=== PATIENT | male | born 1965 | race Caucasian/White ===

== ENCOUNTER 2020-03-22 19:43 | Inpatient (IN) | payer MEDICAID ==
[~2020-03-22] VITALS: Ht 177.8 cm; Wt 136.0 kg
[~2020-03-22 19:43] MED LIST: CYCL10TA2 PO; NAPR-683 PO
[2020-03-22] MEDS ORDERED: MORPHINE SULFATE 10 MG/ML VIAL. IV ONE ×3 (20:15→23:30)
[2020-03-22] MEDS ORDERED: IV RINGERS,LACTATED 1000ML 1,000 ML IV ONE (20:15)
--- NOTE | 2020-03-22 20:15 | ED.ADGEN ---
Past Medical History Past Medical History: Hypertension Past Surgical History: Other Additional Past Surgical Histo: right knee surgery, left knee surgery Smoking Status: Current Every Day Smoker Alcohol Use: None Drug Use: None General Adult EDM: Chief Complaint: ABDOMINAL PAIN HPI: HPI: Patient is a 54 year old male coming in for low abdominal pain and constipation for the past 4 days. Patient states he had had diarrhea for a couple of days but then stopped and he has not had a bowel movement since. Not passing gas either. Has had some nausea but no vomiting. Denies any urine complaints. Patient has a history of umbilical hernia and states that it is protruded more. Also over the past couple of weeks he started having sores that are nonweeping on the skin overlying the hernia. States he has no shortness of breath because he feels like his abdomen is more distended but denies any cough, fevers, headaches, chest pain. Review of Systems: Review of Systems: All other systems within normal limits except for as noted in the HPI Current Medications: Current Medications Medications (Trade) Dose Ordered Sig/David Start Time Stop Time Status Last Admin Dose Admin Info (CONTRAST GIVEN -- Rx MONITORING) 1 each PRN DAILY PRN 03/22/20 20:45 03/24/20 20:44 Iohexol (Omnipaque 300 Mg/ml) 75 ml 1X ONCE 03/22/20 20:45 03/22/20 20:46 DC 03/22/20 21:30 75 ML Morphine Sulfate (Morphine Sulfate) 4 mg PRN Q2HR PRN 03/22/20 23:30 03/23/20 23:29 UNV Ondansetron HCl (Zofran) 4 mg PRN Q8HRS PRN 03/22/20 23:30 03/23/20 23:29 UNV Piperacillin Sod/ Tazobactam Sod 4.5 gm/Sodium Chloride 100 ml @ 200 mls/hr 1X ONCE 03/22/20 22:45 03/22/20 23:14 DC 03/22/20 22:45 200 MLS/HR Ringer's Solution 1,000 ml @ 75 mls/hr 1X ONCE 03/22/20 20:15 03/23/20 09:34 03/22/20 20:21 75 MLS/HR Sodium Chloride 1,000 ml @ 75 mls/hr [id number] 03/22/20 23:30 03/23/20 23:29 UNV Allergies: Allergies: Allergies Coded Allergies Type Severity Reaction Last Updated Verified No Known Drug Allergies 03/27/13 No Physical Exam: PE: Constitutional: Well developed, well nourished, moderate distress, non-toxic appearance, obese. [] HENT: Normocephalic, atraumatic, bilateral external ears normal, nose normal. [] Eyes: PERRLA, conjunctiva normal, no discharge. [] Neck: No rigidity, supple, no stridor. [] Cardiovascular: Regular rate and rhythm, brisk cap refill [] Lungs & Thorax: Non labored symmetric respirations, no tachypnea or respiratory distress [] Abdomen: Distended, generalized tenderness, large, erythematous, firm umbilical hernia. Skin: Warm, dry, erythema over umbilical hernia with 3 scabbed wounds [] Extremities: No deformities, range of motion grossly intact, no lower extremity edema [] Neurologic: Alert and oriented X 3, no focal deficits noted. [] Psychologic: Affect normal, judgement normal, mood normal. [] Current Patient Data: Labs: Laboratory Tests Test 03/22/20 20:05 03/22/20 20:41 White Blood Count 13.7 x10^3/uL (4.0-11.0) H Red Blood Count 4.95 x10^6/uL (4.30-5.70) Hemoglobin 14.6 g/dL (13.0-17.5) Hematocrit 43.2 % (39.0-53.0) Mean Corpuscular Volume 87 fL (79-100) Mean Corpuscular Hemoglobin 30 pg (25-35) Mean Corpuscular Hemoglobin Concent 34 g/dL (31-37) Red Cell Distribution Width 14.7 % (11.5-14.5) H Platelet Count 383 x10^3/uL (140-400) Neutrophils (%) (Auto) 76 % (31-73) H Lymphocytes (%) (Auto) 16 % (24-48) L Monocytes (%) (Auto) 5 % (0-9) Eosinophils (%) (Auto) 1 % (0-3) Basophils (%) (Auto) 1 % (0-3) Neutrophils # (Auto) 10.4 x10^3/uL (1.8-7.7) H Lymphocytes # (Auto) 2.2 x10^3/uL (1.0-4.8) Monocytes # (Auto) 0.7 x10^3/uL (0.0-1.1) Eosinophils # (Auto) 0.2 x10^3/uL (0.0-0.7) Basophils # (Auto) 0.2 x10^3/uL (0.0-0.2) Lactic Acid Level 0.8 mmol/L (0.4-2.0) Sodium Level 137 mmol/L (136-145) Potassium Level 3.7 mmol/L (3.5-5.1) Chloride Level 100 mmol/L (98-107) Carbon Dioxide Level 26 mmol/L (21-32) Anion Gap 11 (6-14) Blood Urea Nitrogen 13 mg/dL (8-26) Creatinine 0.8 mg/dL (0.7-1.3) Estimated GFR (Cockcroft-Gault) 101.5 BUN/Creatinine Ratio 16 (6-20) Glucose Level 111 mg/dL (70-99) H Calcium Level 9.1 mg/dL (8.5-10.1) Total Bilirubin 0.3 mg/dL (0.2-1.0) Aspartate Amino Transferase (AST) 19 U/L (15-37) Alanine Aminotransferase (ALT) 29 U/L (16-63) Alkaline Phosphatase 85 U/L (46-116) Troponin I Quantitative < 0.017 ng/mL (0.000-0.055) Total Protein 7.9 g/dL (6.4-8.2) Albumin 3.1 g/dL (3.4-5.0) L Albumin/Globulin Ratio 0.6 (1.0-1.7) L Lipase 73 U/L (73-393) Laboratory Tests 03/22/20 20:05 Laboratory Tests 03/22/20 20:41 Vital Signs: Vital Signs Date Time Temp Pulse Resp B/P (MAP) Pulse Ox O2 Delivery O2 Flow Rate FiO2 03/22/20 23:00 98 167/77 (107) 94 Room Air 03/22/20 21:11 98.3 20 98.3 EKG: EKG: Sinus rhythm, heart rate 90 bpm, normal axis, incomplete right bundle branch block, normal intervals, T waves unremarkable, no ST elevation or depression [] Heart Score: Risk Factors: Risk Factors: DM, Current or recent (<one month) smoker, HTN, HLP, family history of CAD, obesity. Risk Scores: Score 0 - 3: 2.5% MACE over next 6 weeks - Discharge Home Score 4 - 6: 20.3% MACE over next 6 weeks - Admit for Clinical Observation Score 7 - 10: 72.7% MACE over next 6 weeks - Early Invasive Strategies Radiology/Procedures: Radiology/Procedures: CT SCAN OF THE ABDOMEN AND PELVIS WITH IV CONTRAST. History: Reason: hernia, bowel obstruction / Spl. Instructions: OMNI 300 INJ 75 MLS / History: Comparison:None. Procedure: Contiguous axial images of the abdomen and pelvis were performed after the administration of 75 cc of Omni 300 IV contrast. Oral contrast: No. Findings: There is a large umbilical hernia containing a segment of the transverse colon. There is some surrounding inflammation but no wall thickening. The colon distal to this is collapsed and proximal to the hernia is moderately distended. Liver: 8 mm hypoattenuating lesion anteriorly in the liver is too small to characterize but is likely a cyst. Spleen: Unremarkable Pancreas: Unremarkable Adrenal Glands: Unremarkable Kidneys: Unremarkable There is no mass or lymphadenopathy. There is no free air. There is no free fluid. The urinary bladder appears normal. Impression: 1. There is a large umbilical hernia containing a segment of the transverse colon. There is mild obstruction. 2. There is inflammation surrounding the herniated portion of the colon however there is no wall thickening to suggest incarceration.[] Course & Med Decision Making: Course & Med Decision Making Pertinent Labs and Imaging studies reviewed. (See chart for details) [] Dragon Disclaimer: Dragon Disclaimer: This electronic medical record was generated, in whole or in part, using a voice recognition dictation system. Departure Departure Impression: Primary Impression: Umbilical hernia with obstruction Disposition: ADMITTED INPT THIS HOSP Condition: STABLE Referrals: NO PCP (PCP) JAMES VILLASENOR MD Mar 22, 2020 20:15
[2020-03-22 20:29] LABS: BASO # 0.2 x10^3/uL (0.0-0.2); BASO % 1 % (0-3); EOS # 0.2 x10^3/uL (0.0-0.7); EOS % 1 % (0-3); HEMATOCRIT 43.2 % (39.0-53.0); HEMOGLOBIN 14.6 g/dL (13.0-17.5); LYMPH # 2.2 x10^3/uL (1.0-4.8); LYMPH % 16 % (24-48); MEAN CORPUSCULAR HEMOGLOBIN 30 pg (25-35); MEAN CORPUSCULAR HGB CONC 34 g/dL (31-37); MEAN CORPUSCULAR VOLUME 87 fL (79-100); MONO # 0.7 x10^3/uL (0.0-1.1); MONO % 5 % (0-9); NEUT # 10.4 x10^3/uL (1.8-7.7); NEUT % 76 % (31-73); PLATELET COUNT 383 x10^3/uL (140-400); RED BLOOD COUNT 4.95 x10^6/uL (4.30-5.70); RED CELL DISTRIBUTION WIDTH 14.7 % (11.5-14.5); WHITE BLOOD COUNT 13.7 x10^3/uL (4.0-11.0)
[2020-03-22] MEDS ORDERED: ONDANSETRON PF 4 MG/2 ML VIAL. IVP ONE (20:30)
[2020-03-22] MEDS ORDERED: CONTRAST GIVEN. MC PRN (20:45)
[2020-03-22] MEDS ORDERED: IOHEXOL 300 MG/ML 100ML VIAL. IV ONE (20:45)
[2020-03-22 21:05] LABS: ALBUMIN 3.1 g/dL (3.4-5.0); ALBUMIN/GLOBULIN RATIO 0.6 (1.0-1.7); CALCIUM 9.1 mg/dL (8.5-10.1); POTASSIUM 3.7 mmol/L (3.5-5.1); TOTAL BILIRUBIN 0.3 mg/dL (0.2-1.0); TOTAL PROTEIN 7.9 g/dL (6.4-8.2)
[2020-03-22 21:15] LABS: CREATININE 0.8 mg/dL (0.7-1.3); GFR 101.5
--- NOTE | 2020-03-22 22:02 | RAD ---
CT SCAN OF THE ABDOMEN AND PELVIS WITH IV CONTRAST. History: Reason: hernia, bowel obstruction / Spl. Instructions: OMNI 300 INJ 75 MLS / History: Comparison:None. Procedure: Contiguous axial images of the abdomen and pelvis were performed after the administration of 75 cc o f Omni 300 IV contrast. Oral contrast: No. Findings: There is a large umbilical hernia containing a segment of the transverse colon. There is some surroun ding inflammation but no wall thickening. The colon distal to this is collapsed and proximal to the h ernia is moderately distended. Liver: 8 mm hypoattenuating lesion anteriorly in the liver is too small to characterize but is likely a cyst. Spleen: Unremarkable Pancreas: Unremarkable Adrenal Glands: Unremarkable Kidneys: Unremarkable There is no mass or lymphadenopathy. There is no free air. There is no free fluid. The urinary bladder appears normal. Impression: 1. There is a large umbilical hernia containing a segment of the transverse colon. There is mild obst ruction. 2. There is inflammation surrounding the herniated portion of the colon however there is no wall thic kening to suggest incarceration. End impression PQRS Compliance Statement: One or more of the following individualized dose reduction techniques were utilized for this examinat ion: 1. Automated exposure control 2. Adjustment of the mA and/or kV according to patient size 3. Use of iterative reconstruction technique Electronically signed by: Diego Tony III, MD (03/22/2020 10:00 PM) [facility]
[2020-03-22] MEDS ORDERED: PIPERACILLIN/TAZOBACTAM 4.5 GM in IV NORMAL SALINE 100ML 100 ML IV ONE (22:45)
[2020-03-22] MEDS ORDERED: MORPHINE SULFATE 4 MG/ML VIAL. IV PRN (23:30)
[2020-03-22] MEDS ORDERED: ONDANSETRON PF 4 MG/2 ML VIAL. IV PRN (23:30)
[2020-03-22] MEDS: IV NORMAL SALINE 1000ML BAG 1,000 ML IV SCH (23:44)
[2020-03-22 23:46] LABS: BILIRUBIN,URINE NEGATIVE (NEG); COLOR,URINE YELLOW; NITRITE,URINE NEGATIVE (NEG); PROTEIN,URINE NEGATIVE (NEG-TRACE); UROBILINOGEN,URINE 0.2 mg/dL (0.2 mg/dL)
[2020-03-22 23:48] LABS: CLARITY,URINE CLEAR
[2020-03-22 23:50] LABS: BACTERIA,URINE 0 /HPF (0-FEW); WBC,URINE 0 /HPF (0-4)
[2020-03-23] VITALS (10 sets, daily range): BP systolic 101–165; BP diastolic 50–93
[2020-03-23] MEDS ORDERED: Blood pressure med (03:18)
--- NOTE | 2020-03-23 07:49 | PDOC2 ---
CONSULT Date of Consult Date of Consult DATE: 03/23/20 TIME: 07:46 Reason for Consult Reason for Consult: Incarcerated ventral hernia Referring Physician Referring Physician: Marc Identification/Chief Complaint Chief Complaint Abdominal pain constipation Source Source: Chart review, Patient History of Present Illness Reason for Visit: 54-year-old morbidly obese male with large umbilical hernia present for many years recently becoming more painful over the last 4 days has been very constipated denies any nausea or vomiting Past Medical History Cardiovascular: HTN Pulmonary: No pertinent hx GI: No pertinent hx Heme/Onc: No pertinent hx Hepatobiliary: No pertinent hx Psych: No pertinent hx Rheumatologic: No pertinent hx Infectious disease: No pertinent hx ENT: No pertinent hx Renal/: No pertinent hx Endocrine: Diabetes Dermatology: No pertinent hx Past Surgical History Past Surgical History: No pertinent history Family History Family History: No Significant Social History No ALCOHOL: social Drugs: None Lives: with Family Current Problem List Problem List Problems Medical Problems: (1) Umbilical hernia with obstruction Status: Acute Current Medications Current Medications Current Medications Morphine Sulfate (Morphine Sulfate) 5 mg 1X ONCE IV Last administered on 03/22/20at 20:26; Start 03/22/20 at 20:15; Stop 03/22/20 at 20:16; Status DC Ringer's Solution 1,000 ml @ 75 mls/hr 1X ONCE IV Last administered on 03/22/20at 20:21; Start 03/22/20 at 20:15; Stop 03/23/20 at 09:34 Ondansetron HCl (Zofran) 4 mg 1X ONCE IVP Last administered on 03/22/20at 20:26; Start 03/22/20 at 20:30; Stop 03/22/20 at 20:31; Status DC Iohexol (Omnipaque 300 Mg/ml) 75 ml 1X ONCE IV Last administered on 03/22/20at 21:30; Start 03/22/20 at 20:45; Stop 03/22/20 at 20:46; Status DC Info (CONTRAST GIVEN -- Rx MONITORING) 1 each PRN DAILY PRN MC SEE COMMENTS; Start 03/22/20 at 20:45; Stop 03/24/20 at 20:44 Morphine Sulfate (Morphine Sulfate) 5 mg 1X ONCE IV Last administered on 03/22/20at 21:20; Start 03/22/20 at 21:15; Stop 03/22/20 at 21:16; Status DC Piperacillin Sod/ Tazobactam Sod 4.5 gm/Sodium Chloride 100 ml @ 200 mls/hr 1X ONCE IV Last administered on 03/22/20at 22:45; Start 03/22/20 at 22:45; Stop 03/22/20 at 23:14; Status DC Morphine Sulfate (Morphine Sulfate) 5 mg 1X ONCE IV Last administered on 03/22/20at 23:44; Start 03/22/20 at 23:30; Stop 03/22/20 at 23:31; Status DC Ondansetron HCl (Zofran) 4 mg PRN Q8HRS PRN IV NAUSEA/VOMITING; Start 03/22/20 at 23:30; Stop 03/23/20 at 23:29 Morphine Sulfate (Morphine Sulfate) 4 mg PRN Q2HR PRN IV PAIN Last administered on 03/23/20at 03:10; Start 03/22/20 at 23:30; Stop 03/23/20 at 23:29 Sodium Chloride 1,000 ml @ 75 mls/hr [id number] IV Last administered on 03/22/20at 23:44; Start 03/22/20 at 23:30; Stop 03/23/20 at 23:29 Active Scripts Active Reported [Blood pressure med] Allergies Allergies: Coded Allergies: No Known Drug Allergies (Unverified , 03/27/13) ROS Gastrointestinal: Yes Abdominal Pain Physical Exam General: Alert, Oriented X3, Cooperative, mild distress HEENT: Atraumatic, EOMI Lungs: Clear to auscultation, Normal air movement Heart: Regular rate, No murmurs Abdomen: Normal bowel sounds, Soft, Other (Abdomen tender around the umbilicus skin changes with some wounds large umbilical hernia) Extremities: Other (Mild pedal edema) Skin: Other (Abdominal skin wounds) Neuro: Normal speech Psych/Mental Status: Mental status NL Vitals VITALS Vital Signs Date Time Temp Pulse Resp B/P (MAP) Pulse Ox O2 Delivery O2 Flow Rate FiO2 03/23/20 03:10 18 92 Nasal Cannula 2.0 03/23/20 03:00 97.9 97 146/74 (98) 97.9 Labs Labs Laboratory Tests Test 03/22/20 20:05 03/22/20 20:41 03/22/20 23:40 03/23/20 00:09 White Blood Count 13.7 x10^3/uL (4.0-11.0) Red Blood Count 4.95 x10^6/uL (4.30-5.70) Hemoglobin 14.6 g/dL (13.0-17.5) Hematocrit 43.2 % (39.0-53.0) Mean Corpuscular Volume 87 fL (79-100) Mean Corpuscular Hemoglobin 30 pg (25-35) Mean Corpuscular Hemoglobin Concent 34 g/dL (31-37) Red Cell Distribution Width 14.7 % (11.5-14.5) Platelet Count 383 x10^3/uL (140-400) Neutrophils (%) (Auto) 76 % (31-73) Lymphocytes (%) (Auto) 16 % (24-48) Monocytes (%) (Auto) 5 % (0-9) Eosinophils (%) (Auto) 1 % (0-3) Basophils (%) (Auto) 1 % (0-3) Neutrophils # (Auto) 10.4 x10^3/uL (1.8-7.7) Lymphocytes # (Auto) 2.2 x10^3/uL (1.0-4.8) Monocytes # (Auto) 0.7 x10^3/uL (0.0-1.1) Eosinophils # (Auto) 0.2 x10^3/uL (0.0-0.7) Basophils # (Auto) 0.2 x10^3/uL (0.0-0.2) Lactic Acid Level 0.8 mmol/L (0.4-2.0) Sodium Level 137 mmol/L (136-145) Potassium Level 3.7 mmol/L (3.5-5.1) Chloride Level 100 mmol/L (98-107) Carbon Dioxide Level 26 mmol/L (21-32) Anion Gap 11 (6-14) Blood Urea Nitrogen 13 mg/dL (8-26) Creatinine 0.8 mg/dL (0.7-1.3) Estimated GFR (Cockcroft-Gault) 101.5 BUN/Creatinine Ratio 16 (6-20) Glucose Level 111 mg/dL (70-99) Calcium Level 9.1 mg/dL (8.5-10.1) Total Bilirubin 0.3 mg/dL (0.2-1.0) Aspartate Amino Transf (AST/SGOT) 19 U/L (15-37) Alanine Aminotransferase (ALT/SGPT) 29 U/L (16-63) Alkaline Phosphatase 85 U/L (46-116) Troponin I Quantitative < 0.017 ng/mL (0.000-0.055) Total Protein 7.9 g/dL (6.4-8.2) Albumin 3.1 g/dL (3.4-5.0) Albumin/Globulin Ratio 0.6 (1.0-1.7) Lipase 73 U/L (73-393) Urine Collection Type Unknown Urine Color Yellow Urine Clarity Clear Urine pH 7.0 (<5.0-8.0) Urine Specific [place] >=1.030 (1.000-1.030) Urine Protein Negative mg/dL (NEG-TRACE) Urine Glucose (UA) Negative mg/dL (NEG) Urine Ketones (Stick) Negative mg/dL (NEG) Urine Blood Negative (NEG) Urine Nitrite Negative (NEG) Urine Bilirubin Negative (NEG) Urine Urobilinogen Dipstick 0.2 mg/dL (0.2 mg/dL) Urine Leukocyte Esterase Negative (NEG) Urine RBC 1-2 /HPF (0-2) Urine WBC 0 /HPF (0-4) Urine Bacteria 0 /HPF (0-FEW) Urine Mucus Slight /LPF SARS-CoV-2 Antigen (Rapid) Negative (NEGATIVE) Laboratory Tests Test 03/22/20 20:05 03/22/20 20:41 03/22/20 23:40 03/23/20 00:09 White Blood Count 13.7 x10^3/uL (4.0-11.0) Red Blood Count 4.95 x10^6/uL (4.30-5.70) Hemoglobin 14.6 g/dL (13.0-17.5) Hematocrit 43.2 % (39.0-53.0) Mean Corpuscular Volume 87 fL (79-100) Mean Corpuscular Hemoglobin 30 pg (25-35) Mean Corpuscular Hemoglobin Concent 34 g/dL (31-37) Red Cell Distribution Width 14.7 % (11.5-14.5) Platelet Count 383 x10^3/uL (140-400) Neutrophils (%) (Auto) 76 % (31-73) Lymphocytes (%) (Auto) 16 % (24-48) Monocytes (%) (Auto) 5 % (0-9) Eosinophils (%) (Auto) 1 % (0-3) Basophils (%) (Auto) 1 % (0-3) Neutrophils # (Auto) 10.4 x10^3/uL (1.8-7.7) Lymphocytes # (Auto) 2.2 x10^3/uL (1.0-4.8) Monocytes # (Auto) 0.7 x10^3/uL (0.0-1.1) Eosinophils # (Auto) 0.2 x10^3/uL (0.0-0.7) Basophils # (Auto) 0.2 x10^3/uL (0.0-0.2) Lactic Acid Level 0.8 mmol/L (0.4-2.0) Sodium Level 137 mmol/L (136-145) Potassium Level 3.7 mmol/L (3.5-5.1) Chloride Level 100 mmol/L (98-107) Carbon Dioxide Level 26 mmol/L (21-32) Anion Gap 11 (6-14) Blood Urea Nitrogen 13 mg/dL (8-26) Creatinine 0.8 mg/dL (0.7-1.3) Estimated GFR (Cockcroft-Gault) 101.5 BUN/Creatinine Ratio 16 (6-20) Glucose Level 111 mg/dL (70-99) Calcium Level 9.1 mg/dL (8.5-10.1) Total Bilirubin 0.3 mg/dL (0.2-1.0) Aspartate Amino Transf (AST/SGOT) 19 U/L (15-37) Alanine Aminotransferase (ALT/SGPT) 29 U/L (16-63) Alkaline Phosphatase 85 U/L (46-116) Troponin I Quantitative < 0.017 ng/mL (0.000-0.055) Total Protein 7.9 g/dL (6.4-8.2) Albumin 3.1 g/dL (3.4-5.0) Albumin/Globulin Ratio 0.6 (1.0-1.7) Lipase 73 U/L (73-393) Urine Collection Type Unknown Urine Color Yellow Urine Clarity Clear Urine pH 7.0 (<5.0-8.0) Urine Specific [place] >=1.030 (1.000-1.030) Urine Protein Negative mg/dL (NEG-TRACE) Urine Glucose (UA) Negative mg/dL (NEG) Urine Ketones (Stick) Negative mg/dL (NEG) Urine Blood Negative (NEG) Urine Nitrite Negative (NEG) Urine Bilirubin Negative (NEG) Urine Urobilinogen Dipstick 0.2 mg/dL (0.2 mg/dL) Urine Leukocyte Esterase Negative (NEG) Urine RBC 1-2 /HPF (0-2) Urine WBC 0 /HPF (0-4) Urine Bacteria 0 /HPF (0-FEW) Urine Mucus Slight /LPF SARS-CoV-2 Antigen (Rapid) Negative (NEGATIVE) Images Images CT scan showing large ventral hernia at the umbilicus with incarcerated transverse colon no evidence of obstruction Assessment/Plan Assessment/Plan Incarcerated ventral umbilical hernia plan repair ERIC LORENZ MD Mar 23, 2020 07:49
[2020-03-23 07:51] LABS: BASO # 0.1 x10^3/uL (0.0-0.2); BASO % 0 % (0-3); EOS # 0.1 x10^3/uL (0.0-0.7); EOS % 1 % (0-3); HEMATOCRIT 42.8 % (39.0-53.0); HEMOGLOBIN 13.9 g/dL (13.0-17.5); LYMPH # 1.7 x10^3/uL (1.0-4.8); LYMPH % 14 % (24-48); MEAN CORPUSCULAR HEMOGLOBIN 29 pg (25-35); MEAN CORPUSCULAR HGB CONC 32 g/dL (31-37); MEAN CORPUSCULAR VOLUME 88 fL (79-100); MONO # 0.7 x10^3/uL (0.0-1.1); MONO % 5 % (0-9); NEUT # 9.8 x10^3/uL (1.8-7.7); NEUT % 80 % (31-73); PLATELET COUNT 351 x10^3/uL (140-400); RED BLOOD COUNT 4.87 x10^6/uL (4.30-5.70); RED CELL DISTRIBUTION WIDTH 14.3 % (11.5-14.5); WHITE BLOOD COUNT 12.3 x10^3/uL (4.0-11.0)
[2020-03-23] MEDS ORDERED: ceFAZolin SODIUM 3 GM in IV DEXTROSE 5% 100ML 100 ML IV PRN (08:00)
[2020-03-23] MEDS ORDERED: ceFAZolin SODIUM IV Push 1 GM VIAL. IVP PRN (08:00)
[2020-03-23 08:03] LABS: CALCIUM 8.3 mg/dL (8.5-10.1); CREATININE 0.6 mg/dL (0.7-1.3); GFR 141.5; POTASSIUM 3.9 mmol/L (3.5-5.1)
[2020-03-23] MEDS ORDERED: ROCURONIUM 50 MG/5 ML VIAL. ONE (09:09)
[2020-03-23] MEDS ORDERED: fentaNYL PF VIAL 100 MCG/2 ML VIAL ONE (09:10)
[2020-03-23] MEDS ORDERED: LIDOCAINE 2% PF 5 ML VIAL. ONE (09:10)
[2020-03-23] MEDS ORDERED: PROPOFOL 10 MG/ML (20ML) VIAL. IV ONE (09:10)
[2020-03-23] MEDS ORDERED: DEXAMETHASONE SOD PHOS 4 MG/ML VIAL ONE (09:10)
[2020-03-23] MEDS ORDERED: ONDANSETRON PF 4 MG/2 ML VIAL. ONE (09:10)
[2020-03-23] MEDS ORDERED: BUPIVACAINE-EPI 0.25%-1:200000 MPF 30 ML VIAL. INJ ONE (09:15)
[2020-03-23] MEDS ORDERED: SUCCINYLCHOLINE 200 MG/10 ML VIAL. ONE (09:37)
[2020-03-23] MEDS ORDERED: PHENYLEPHRINE in 0.9% NACL PF 1 MG/10 ML SYRINGE. IV ONE (09:48)
[2020-03-23] MEDS ORDERED: ROCURONIUM 100 MG/10 ML VIAL. ONE (10:31)
--- NOTE | 2020-03-23 10:46 | PDOC4 ---
Operative Note Operative Note Date: March 23, 2020 at 1043 Preoperative diagnosis: Incarcerated umbilical hernia Postoperative diagnosis: Same Procedure: Exploratory laparotomy with repair of large umbilical hernia Surgeon: Johnnie Specimen: Hernia sac and contents Dictation: Patient is a 54-year-old gentleman admitted to the hospital with abdominal pain and a large umbilical hernia containing a incarcerated loop of transverse colon. Procedure of exploratory laparotomy with hernia repair was explained to the patient detail risk benefits were also discussed including bleeding infection injury to intra-abdominal contents possible necessitating further operations. Patient seemed understand gave both verbal and written consent to have the procedure performed. Patient was taken to the operating room placed in the supine position general anesthesia was initiated once patient was sleeping in bed his abdomen was prepped and draped usual sterile fashion using ChloraPrep. An elliptical incision around the hernia defect was made through the skin using of 10 blade scalpel is carried down through the subcutaneous tissue using electrocautery right hemostasis. Electrocautery was used to dissect out the hernia sac and its contents down to the fascia the hernia sac was then carefully opened taking great care not to injure any hernia contents was further opened to allow for reduction of the hernia contents. The sac was completely excised and sent for pathology the fascia opening was cleared of any adherent tissues and all contents were returned back to the abdomen. The fascia was then closed with a running #1 looped PDS. Deep subcutaneous layer was closed with a running 0 Vicryl, more subcutaneous layers closed with running 3-0 Vicryl and the skin was reapproximated for subcuticular Monocryl Mastisol Steri-Strips and island dressings were applied. Patient was awakened and extubated in the operating room taken to recovery in stable condition all sponge instrument needle counts listed as correct estimated blood loss 30 mL. ERIC LORENZ MD Mar 23, 2020 10:46
[2020-03-23] MEDS ORDERED: GLYCOPYRROLATE 1 MG/5 ML VIAL. ONE (10:58)
[2020-03-23] MEDS ORDERED: NEOSTIGMINE METHYLSULFATE 5 MG/5 ML SYRINGE. ONE (10:58)
[2020-03-23] MEDS ORDERED: SEVOFLURANE 61 TO 120 MINUTES. IH ONE (10:59)
[2020-03-23] MEDS ORDERED: oxyCODONE/APAP 5/325 1 TAB TABLET PO PRN (11:00)
--- NOTE | 2020-03-23 11:05 | NUR ---
SW following for discharge planning. Spoke with RN and reviewed chart. Pt currently NPO and on 2l 02 and IV pain medication. Pt in surgery today. Pt self-pay and [facility] is following. No anticipated SW needs on discharge. SW following. Addendum: 03/26/20 at 0948 by LEDY DODSON SW pt transferred to 4N. No further needs from this SW.
[2020-03-23] MEDS ORDERED: MORPHINE SULFATE 2 MG/ML VIAL. ONE (11:19)
[2020-03-23] MEDS: MORPHINE SULFATE 2 MG/ML VIAL. IV PRN ×2 (11:21→11:35)
[2020-03-23] MEDS ORDERED: HYDROmorphone 2 MG/ML VIAL ONE (11:41)
[2020-03-23] MEDS: HYDROmorphone 2 MG/ML VIAL IV PRN ×3 (11:45→12:12)
[2020-03-23] MEDS: IV NORMAL SALINE 1000ML BAG 1,000 ML IV SCH (14:50)
[2020-03-23] MEDS: POLYETHYLENE GLYCOL 3350 17 GM PACKET. PO SCH (14:50)
[2020-03-23] MEDS: oxyCODONE/APAP 5/325 1 TAB TABLET PO PRN (18:25)
--- NOTE | 2020-03-23 18:36 | PDOC1 ---
History and Physical Date of Admission Date of Admission 03/23/2020 Identification/Chief Complaint Chief Complaint My stomach hurts Source Source: Chart review, Patient History of Present Illness History of Present Illness Patient is a 55-year-old gentleman with past medical history of essential hypertension who has been in his usual state of health until approximately 4 days prior to his admission when he started complaining of constipation and subsequently lower abdominal pain. The patient apparently had bouts of diarrhea and decided to self medicate and seems to have gone the other extreme. He unfortunately stopped passing gas and due to most likely his constipation he also had some nausea he denies any emesis denies any dietary transgressions no sick contacts no travels outside the area. The patient does have a history of umbilical hernia and due to the discomfort and he was scanned and found to have a large umbilical hernia containing a segment of the transverse colon that apparently was reported to be mildly obstructed and there was some inflammation surrounding this portion of colon but no wall thickening to suggest incarceration. Due to the abnormal findings of the CAT scan the patient was admitted for surgical evaluation. The patient is being seen postop after he underwent the following procedure: Operative Note Operative Note Date: March 23, 2020 at 1043 Preoperative diagnosis: Incarcerated umbilical hernia Postoperative diagnosis: Same Procedure: Exploratory laparotomy with repair of large umbilical hernia Surgeon: Johnnie Specimen: Hernia sac and contents Dictation: Patient is a 54-year-old gentleman admitted to the hospital with abdominal pain and a large umbilical hernia containing a incarcerated loop of transverse colon. Procedure of exploratory laparotomy with hernia repair was explained to the patient detail risk benefits were also discussed including bleeding infection injury to intra-abdominal contents possible necessitating further operations. Patient seemed understand gave both verbal and written consent to have the procedure performed. Patient was taken to the operating room placed in the supine position general anesthesia was initiated once patient was sleeping in bed his abdomen was prepped and draped usual sterile fashion using ChloraPrep. An elliptical incision around the hernia defect was made through the skin using of 10 blade scalpel is carried down through the subcutaneous tissue using electrocautery right hemostasis. Electrocautery was used to dissect out the hernia sac and its contents down to the fascia the hernia sac was then carefully opened taking great care not to injure any hernia contents was further opened to allow for reduction of the hernia contents. The sac was completely excised and sent for pathology the fascia opening was cleared of any adherent tissues and all contents were returned back to the abdomen. The fascia was then closed with a running #1 looped PDS. Deep subcutaneous layer was closed with a running 0 Vicryl, more subcutaneous layers closed with running 3-0 Vicryl and the skin was reapproximated for subcuticular Monocryl Mastisol Steri-Strips and island dressings were applied. Patient was awakened and extubated in the operating room taken to recovery in stable condition all sponge instrument needle counts listed as correct estimated blood loss 30 mL. Past Medical History Cardiovascular: HTN Pulmonary: No pertinent hx GI: No pertinent hx Heme/Onc: No pertinent hx Hepatobiliary: No pertinent hx Psych: No pertinent hx Rheumatologic: No pertinent hx Infectious disease: No pertinent hx ENT: No pertinent hx Renal/: No pertinent hx Endocrine: Diabetes Dermatology: No pertinent hx Past Surgical History Past Surgical History: No pertinent history Family History Family History: No Significant Social History Smoke: No ALCOHOL: social Drugs: None Current Problem List Problem List Problems Medical Problems: (1) Umbilical hernia with obstruction Status: Acute Current Medications Current Medications Current Medications Medications (Trade) Dose Ordered Sig/David Start Time Stop Time Status Last Admin Dose Admin Bupivacaine HCl/ Epinephrine Bitart (Sensorcaine-Epi 0.25%-1:828736 Mpf) 30 ml 1X ONCE 03/23/20 09:15 03/23/20 09:16 DC Cefazolin Sodium (Ancef) 3 gm 1X PREOP PRN 03/23/20 08:00 UNV Cefazolin Sodium 3 gm/Dextrose 100 ml @ 200 mls/hr 1X PREOP PRN 03/23/20 08:00 03/24/20 07:59 Cancel Cefazolin Sodium 3 gm/Sodium Chloride 100 ml @ 200 mls/hr 1X PREOP PRN 03/23/20 08:00 03/24/20 07:59 03/23/20 09:46 200 MLS/HR Dexamethasone Sodium Phosphate (Decadron) 4 mg STK-MED ONCE 03/23/20 09:10 03/23/20 09:11 DC Fentanyl Citrate (Fentanyl 2ml Vial) 100 mcg STK-MED ONCE 03/23/20 09:10 03/23/20 09:10 DC Glycopyrrolate (Robinul) 1 mg STK-MED ONCE 03/23/20 10:58 03/23/20 10:59 DC Hydromorphone HCl (Dilaudid) 2 mg STK-MED ONCE 03/23/20 11:41 03/23/20 11:41 DC Info (CONTRAST GIVEN -- Rx MONITORING) 1 each PRN DAILY PRN 03/22/20 20:45 03/24/20 20:44 Iohexol (Omnipaque 300 Mg/ml) 75 ml 1X ONCE 03/22/20 20:45 03/22/20 20:46 DC 03/22/20 21:30 75 ML Lidocaine HCl (Lidocaine Pf 2% Vial) 5 ml STK-MED ONCE 03/23/20 09:10 03/23/20 09:10 DC Lidocaine HCl (Xylocaine-Mpf 1% 2ml Vial) 2 ml PRN 1X PRN 03/24/20 07:00 03/25/20 06:59 Morphine Sulfate (Morphine Sulfate) 2 mg STK-MED ONCE 03/23/20 11:19 03/23/20 11:20 DC Neostigmine Mchenry (Neostigmine Methylsulfate) 5 mg STK-MED ONCE 03/23/20 10:58 03/23/20 10:58 DC Ondansetron HCl (Zofran) 4 mg STK-MED ONCE 03/23/20 09:10 03/23/20 09:11 DC Oxycodone/ Acetaminophen (Percocet 5/325) 2 tab PRN Q4HRS PRN 03/23/20 11:00 03/23/20 18:25 2 TAB Phenylephrine HCl (PHENYLEPHRINE in 0.9% NACL PF) 1 mg STK-MED ONCE 03/23/20 09:48 03/23/20 09:48 DC Piperacillin Sod/ Tazobactam Sod 4.5 gm/Sodium Chloride 100 ml @ 200 mls/hr 1X ONCE 03/22/20 22:45 03/22/20 23:14 DC 03/22/20 22:45 200 MLS/HR Polyethylene Glycol (miraLAX PACKET) 17 gm DAILY 03/23/20 11:00 03/23/20 14:50 17 GM Prochlorperazine Edisylate (Compazine) 5 mg PACU PRN PRN 03/24/20 07:00 03/25/20 06:59 Propofol (Diprivan) 200 mg STK-MED ONCE 03/23/20 09:10 03/23/20 09:10 DC Ringer's Solution 1,000 ml @ 30 mls/hr Q24H 03/24/20 07:00 03/24/20 18:59 Rocuronium Mchenry (Zemuron) 100 mg STK-MED ONCE 03/23/20 10:31 03/23/20 10:31 DC Sevoflurane (Ultane) 60 ml STK-MED ONCE 03/23/20 10:59 03/23/20 10:59 DC Sodium Chloride 1,000 ml @ 75 mls/hr [id number] 03/22/20 23:30 03/23/20 23:29 03/23/20 14:50 75 MLS/HR Succinylcholine Chloride (Anectine) 200 mg STK-MED ONCE 03/23/20 09:37 03/23/20 09:37 DC Allergies Allergies Allergies Coded Allergies Type Severity Reaction Last Updated Verified No Known Drug Allergies 03/27/13 No ROS Review of System CONSTITUTIONAL: No fever or chills EYES: No recent changes SKIN: No rash or itching CARDIOVASCULAR: No chest pain, syncope, palpitations, or edema RESPIRATORY: No SOB or cough GASTROINTESTINAL: No nausea, vomiting or abdominal pain NEUROLOGICAL: No headaches or weakness ENDOCRINE: No cold or heat intolerance GENITOURINARY: No urgency or frequency of urination MUSCULOSKELETAL: No back pain or joint pain LYMPHATICS: No enlarged lymph nodes PSYCHIATRIC: No anxiety or depression Physical Exam Physical Exam GEN.: No apparent distress. Alert and oriented. HEENT: Head is normocephalic, atraumatic NECK: Supple. LUNGS: Clear to auscultation. HEART: RRR, S1, S2 present. Peripheral pulses intact ABDOMEN: Soft, nontender. Positive bowel sounds. EXTREMITIES: Without any cyanosis. NEUROLOGIC: Normal speech, normal tone PSYCHIATRIC: Normal affect, normal mood. SKIN: No ulcerations Vitals Vitals Vital Signs Date Time Temp Pulse Resp B/P (MAP) Pulse Ox O2 Delivery O2 Flow Rate FiO2 03/23/20 14:46 86 138/70 (92) 03/23/20 14:30 84 03/23/20 14:01 18 Nasal Cannula 2.0 03/23/20 11:08 98.1 98.1 Labs Labs Laboratory Tests Test 03/22/20 20:05 03/22/20 20:41 03/22/20 23:40 03/23/20 00:09 White Blood Count 13.7 x10^3/uL (4.0-11.0) Red Blood Count 4.95 x10^6/uL (4.30-5.70) Hemoglobin 14.6 g/dL (13.0-17.5) Hematocrit 43.2 % (39.0-53.0) Mean Corpuscular Volume 87 fL (79-100) Mean Corpuscular Hemoglobin 30 pg (25-35) Mean Corpuscular Hemoglobin Concent 34 g/dL (31-37) Red Cell Distribution Width 14.7 % (11.5-14.5) Platelet Count 383 x10^3/uL (140-400) Neutrophils (%) (Auto) 76 % (31-73) Lymphocytes (%) (Auto) 16 % (24-48) Monocytes (%) (Auto) 5 % (0-9) Eosinophils (%) (Auto) 1 % (0-3) Basophils (%) (Auto) 1 % (0-3) Neutrophils # (Auto) 10.4 x10^3/uL (1.8-7.7) Lymphocytes # (Auto) 2.2 x10^3/uL (1.0-4.8) Monocytes # (Auto) 0.7 x10^3/uL (0.0-1.1) Eosinophils # (Auto) 0.2 x10^3/uL (0.0-0.7) Basophils # (Auto) 0.2 x10^3/uL (0.0-0.2) Lactic Acid Level 0.8 mmol/L (0.4-2.0) Sodium Level 137 mmol/L (136-145) Potassium Level 3.7 mmol/L (3.5-5.1) Chloride Level 100 mmol/L (98-107) Carbon Dioxide Level 26 mmol/L (21-32) Anion Gap 11 (6-14) Blood Urea Nitrogen 13 mg/dL (8-26) Creatinine 0.8 mg/dL (0.7-1.3) Estimated GFR (Cockcroft-Gault) 101.5 BUN/Creatinine Ratio 16 (6-20) Glucose Level 111 mg/dL (70-99) Calcium Level 9.1 mg/dL (8.5-10.1) Total Bilirubin 0.3 mg/dL (0.2-1.0) Aspartate Amino Transf (AST/SGOT) 19 U/L (15-37) Alanine Aminotransferase (ALT/SGPT) 29 U/L (16-63) Alkaline Phosphatase 85 U/L (46-116) Troponin I Quantitative < 0.017 ng/mL (0.000-0.055) Total Protein 7.9 g/dL (6.4-8.2) Albumin 3.1 g/dL (3.4-5.0) Albumin/Globulin Ratio 0.6 (1.0-1.7) Lipase 73 U/L (73-393) Urine Collection Type Unknown Urine Color Yellow Urine Clarity Clear Urine pH 7.0 (<5.0-8.0) Urine Specific White >=1.030 (1.000-1.030) Urine Protein Negative mg/dL (NEG-TRACE) Urine Glucose (UA) Negative mg/dL (NEG) Urine Ketones (Stick) Negative mg/dL (NEG) Urine Blood Negative (NEG) Urine Nitrite Negative (NEG) Urine Bilirubin Negative (NEG) Urine Urobilinogen Dipstick 0.2 mg/dL (0.2 mg/dL) Urine Leukocyte Esterase Negative (NEG) Urine RBC 1-2 /HPF (0-2) Urine WBC 0 /HPF (0-4) Urine Bacteria 0 /HPF (0-FEW) Urine Mucus Slight /LPF SARS-CoV-2 Antigen (Rapid) Negative (NEGATIVE) Test 03/23/20 06:35 White Blood Count 12.3 x10^3/uL (4.0-11.0) Red Blood Count 4.87 x10^6/uL (4.30-5.70) Hemoglobin 13.9 g/dL (13.0-17.5) Hematocrit 42.8 % (39.0-53.0) Mean Corpuscular Volume 88 fL (79-100) Mean Corpuscular Hemoglobin 29 pg (25-35) Mean Corpuscular Hemoglobin Concent 32 g/dL (31-37) Red Cell Distribution Width 14.3 % (11.5-14.5) Platelet Count 351 x10^3/uL (140-400) Neutrophils (%) (Auto) 80 % (31-73) Lymphocytes (%) (Auto) 14 % (24-48) Monocytes (%) (Auto) 5 % (0-9) Eosinophils (%) (Auto) 1 % (0-3) Basophils (%) (Auto) 0 % (0-3) Neutrophils # (Auto) 9.8 x10^3/uL (1.8-7.7) Lymphocytes # (Auto) 1.7 x10^3/uL (1.0-4.8) Monocytes # (Auto) 0.7 x10^3/uL (0.0-1.1) Eosinophils # (Auto) 0.1 x10^3/uL (0.0-0.7) Basophils # (Auto) 0.1 x10^3/uL (0.0-0.2) Sodium Level 140 mmol/L (136-145) Potassium Level 3.9 mmol/L (3.5-5.1) Chloride Level 103 mmol/L (98-107) Carbon Dioxide Level 28 mmol/L (21-32) Anion Gap 9 (6-14) Blood Urea Nitrogen 13 mg/dL (8-26) Creatinine 0.6 mg/dL (0.7-1.3) Estimated GFR (Cockcroft-Gault) 141.5 Glucose Level 109 mg/dL (70-99) Calcium Level 8.3 mg/dL (8.5-10.1) Laboratory Tests Test 03/22/20 20:05 03/22/20 20:41 03/22/20 23:40 03/23/20 00:09 White Blood Count 13.7 x10^3/uL (4.0-11.0) Red Blood Count 4.95 x10^6/uL (4.30-5.70) Hemoglobin 14.6 g/dL (13.0-17.5) Hematocrit 43.2 % (39.0-53.0) Mean Corpuscular Volume 87 fL (79-100) Mean Corpuscular Hemoglobin 30 pg (25-35) Mean Corpuscular Hemoglobin Concent 34 g/dL (31-37) Red Cell Distribution Width 14.7 % (11.5-14.5) Platelet Count 383 x10^3/uL (140-400) Neutrophils (%) (Auto) 76 % (31-73) Lymphocytes (%) (Auto) 16 % (24-48) Monocytes (%) (Auto) 5 % (0-9) Eosinophils (%) (Auto) 1 % (0-3) Basophils (%) (Auto) 1 % (0-3) Neutrophils # (Auto) 10.4 x10^3/uL (1.8-7.7) Lymphocytes # (Auto) 2.2 x10^3/uL (1.0-4.8) Monocytes # (Auto) 0.7 x10^3/uL (0.0-1.1) Eosinophils # (Auto) 0.2 x10^3/uL (0.0-0.7) Basophils # (Auto) 0.2 x10^3/uL (0.0-0.2) Lactic Acid Level 0.8 mmol/L (0.4-2.0) Sodium Level 137 mmol/L (136-145) Potassium Level 3.7 mmol/L (3.5-5.1) Chloride Level 100 mmol/L (98-107) Carbon Dioxide Level 26 mmol/L (21-32) Anion Gap 11 (6-14) Blood Urea Nitrogen 13 mg/dL (8-26) Creatinine 0.8 mg/dL (0.7-1.3) Estimated GFR (Cockcroft-Gault) 101.5 BUN/Creatinine Ratio 16 (6-20) Glucose Level 111 mg/dL (70-99) Calcium Level 9.1 mg/dL (8.5-10.1) Total Bilirubin 0.3 mg/dL (0.2-1.0) Aspartate Amino Transf (AST/SGOT) 19 U/L (15-37) Alanine Aminotransferase (ALT/SGPT) 29 U/L (16-63) Alkaline Phosphatase 85 U/L (46-116) Troponin I Quantitative < 0.017 ng/mL (0.000-0.055) Total Protein 7.9 g/dL (6.4-8.2) Albumin 3.1 g/dL (3.4-5.0) Albumin/Globulin Ratio 0.6 (1.0-1.7) Lipase 73 U/L (73-393) Urine Collection Type Unknown Urine Color Yellow Urine Clarity Clear Urine pH 7.0 (<5.0-8.0) Urine Specific White >=1.030 (1.000-1.030) Urine Protein Negative mg/dL (NEG-TRACE) Urine Glucose (UA) Negative mg/dL (NEG) Urine Ketones (Stick) Negative mg/dL (NEG) Urine Blood Negative (NEG) Urine Nitrite Negative (NEG) Urine Bilirubin Negative (NEG) Urine Urobilinogen Dipstick 0.2 mg/dL (0.2 mg/dL) Urine Leukocyte Esterase Negative (NEG) Urine RBC 1-2 /HPF (0-2) Urine WBC 0 /HPF (0-4) Urine Bacteria 0 /HPF (0-FEW) Urine Mucus Slight /LPF SARS-CoV-2 Antigen (Rapid) Negative (NEGATIVE) Test 03/23/20 06:35 White Blood Count 12.3 x10^3/uL (4.0-11.0) Red Blood Count 4.87 x10^6/uL (4.30-5.70) Hemoglobin 13.9 g/dL (13.0-17.5) Hematocrit 42.8 % (39.0-53.0) Mean Corpuscular Volume 88 fL (79-100) Mean Corpuscular Hemoglobin 29 pg (25-35) Mean Corpuscular Hemoglobin Concent 32 g/dL (31-37) Red Cell Distribution Width 14.3 % (11.5-14.5) Platelet Count 351 x10^3/uL (140-400) Neutrophils (%) (Auto) 80 % (31-73) Lymphocytes (%) (Auto) 14 % (24-48) Monocytes (%) (Auto) 5 % (0-9) Eosinophils (%) (Auto) 1 % (0-3) Basophils (%) (Auto) 0 % (0-3) Neutrophils # (Auto) 9.8 x10^3/uL (1.8-7.7) Lymphocytes # (Auto) 1.7 x10^3/uL (1.0-4.8) Monocytes # (Auto) 0.7 x10^3/uL (0.0-1.1) Eosinophils # (Auto) 0.1 x10^3/uL (0.0-0.7) Basophils # (Auto) 0.1 x10^3/uL (0.0-0.2) Sodium Level 140 mmol/L (136-145) Potassium Level 3.9 mmol/L (3.5-5.1) Chloride Level 103 mmol/L (98-107) Carbon Dioxide Level 28 mmol/L (21-32) Anion Gap 9 (6-14) Blood Urea Nitrogen 13 mg/dL (8-26) Creatinine 0.6 mg/dL (0.7-1.3) Estimated GFR (Cockcroft-Gault) 141.5 Glucose Level 109 mg/dL (70-99) Calcium Level 8.3 mg/dL (8.5-10.1) Images Images CT SCAN OF THE ABDOMEN AND PELVIS WITH IV CONTRAST. History: Reason: hernia, bowel obstruction / Spl. Instructions: OMNI 300 INJ 75 MLS / History: Comparison:None. Procedure: Contiguous axial images of the abdomen and pelvis were performed after the administration of 75 cc of Omni 300 IV contrast. Oral contrast: No. Findings: There is a large umbilical hernia containing a segment of the transverse colon. There is some surrounding inflammation but no wall thickening. The colon distal to this is collapsed and proximal to the hernia is moderately distended. Liver: 8 mm hypoattenuating lesion anteriorly in the liver is too small to characterize but is likely a cyst. Spleen: Unremarkable Pancreas: Unremarkable Adrenal Glands: Unremarkable Kidneys: Unremarkable There is no mass or lymphadenopathy. There is no free air. There is no free fluid. The urinary bladder appears normal. Impression: 1. There is a large umbilical hernia containing a segment of the transverse colon. There is mild obstruction. 2. There is inflammation surrounding the herniated portion of the colon however there is no wall thickening to suggest incarceration VTE Prophylaxis Ordered VTE Prophylaxis Devices: No VTE Pharmacological Prophylaxi: Yes Assessment/Plan Assessment/Plan Incarcerated umbilical hernia Essential hypertension Leukocytosis secondary to the above mentioned incarcerated hernia Morbid obesity with a BMI of 43 Plan: Follow recommendation from surgical instrument repair specialist Resume diet as per hr shared services consultant DVT prophylaxis Lovenox once approved by hr shared services consultant Further recommendations based on clinical course Pain management Incentive spirometer Encourage ambulation and activity Justifications for Admission Other Justification TOÑA WHITE MD Mar 23, 2020 18:36
[2020-03-24 03:00] VITALS: BP 124/67
[2020-03-24 07:00] VITALS: BP 128/57
[2020-03-24] MEDS ORDERED: fentaNYL PF VIAL 100 MCG/2 ML VIAL IV PRN ×2 (07:00)
[2020-03-24] MEDS ORDERED: LIDOCAINE 1% PF 2 ML VIAL. ID PRN (07:00)
[2020-03-24] MEDS ORDERED: PROCHLORPERAZINE 10 MG/2 ML VIAL. IV PRN (07:00)
[2020-03-24] MEDS ORDERED: IV RINGERS,LACTATED 1000ML 1,000 ML IV SCH (07:00)
[2020-03-24] MEDS ORDERED: ONDANSETRON PF 4 MG/2 ML VIAL. IV PRN (07:00)
[2020-03-24] MEDS: oxyCODONE/APAP 5/325 1 TAB TABLET PO PRN ×3 (07:26→19:48)
[2020-03-24 11:00] VITALS: BP 129/60
[2020-03-24] MEDS: POLYETHYLENE GLYCOL 3350 17 GM PACKET. PO SCH (13:12)
[2020-03-24 15:00] VITALS: BP 132/62
--- NOTE | 2020-03-24 16:09 | PDOC ---
SURGICAL PROGRESS NOTE DATE: 03/24/20 TIME: 16:08 Subjective Pt feels better, joseph some PO Vital Signs Vital Signs Date Time Temp Pulse Resp B/P (MAP) Pulse Ox O2 Delivery O2 Flow Rate FiO2 03/24/20 15:00 98.2 98 18 132/62 (85) 96 Room Air 98.2 03/24/20 07:00 2.0 I&O Intake and Output 03/24/20 06:59 Intake Total 2850 ml Output Total 150 ml Balance 2700 ml Intake Oral 1050 ml IV Total 1800 ml Output Urine Total 100 ml Estimated Blood Loss 50 ml # Voids 2 General: Alert, Oriented X3, Cooperative, No acute distress Abdomen: Soft (mild TTP, dressing intact) Labs Laboratory Tests Test 03/22/20 20:05 03/22/20 20:41 03/22/20 23:40 03/23/20 00:09 White Blood Count 13.7 x10^3/uL (4.0-11.0) Red Blood Count 4.95 x10^6/uL (4.30-5.70) Hemoglobin 14.6 g/dL (13.0-17.5) Hematocrit 43.2 % (39.0-53.0) Mean Corpuscular Volume 87 fL (79-100) Mean Corpuscular Hemoglobin 30 pg (25-35) Mean Corpuscular Hemoglobin Concent 34 g/dL (31-37) Red Cell Distribution Width 14.7 % (11.5-14.5) Platelet Count 383 x10^3/uL (140-400) Neutrophils (%) (Auto) 76 % (31-73) Lymphocytes (%) (Auto) 16 % (24-48) Monocytes (%) (Auto) 5 % (0-9) Eosinophils (%) (Auto) 1 % (0-3) Basophils (%) (Auto) 1 % (0-3) Neutrophils # (Auto) 10.4 x10^3/uL (1.8-7.7) Lymphocytes # (Auto) 2.2 x10^3/uL (1.0-4.8) Monocytes # (Auto) 0.7 x10^3/uL (0.0-1.1) Eosinophils # (Auto) 0.2 x10^3/uL (0.0-0.7) Basophils # (Auto) 0.2 x10^3/uL (0.0-0.2) Lactic Acid Level 0.8 mmol/L (0.4-2.0) Sodium Level 137 mmol/L (136-145) Potassium Level 3.7 mmol/L (3.5-5.1) Chloride Level 100 mmol/L (98-107) Carbon Dioxide Level 26 mmol/L (21-32) Anion Gap 11 (6-14) Blood Urea Nitrogen 13 mg/dL (8-26) Creatinine 0.8 mg/dL (0.7-1.3) Estimated GFR (Cockcroft-Gault) 101.5 BUN/Creatinine Ratio 16 (6-20) Glucose Level 111 mg/dL (70-99) Calcium Level 9.1 mg/dL (8.5-10.1) Total Bilirubin 0.3 mg/dL (0.2-1.0) Aspartate Amino Transf (AST/SGOT) 19 U/L (15-37) Alanine Aminotransferase (ALT/SGPT) 29 U/L (16-63) Alkaline Phosphatase 85 U/L (46-116) Troponin I Quantitative < 0.017 ng/mL (0.000-0.055) Total Protein 7.9 g/dL (6.4-8.2) Albumin 3.1 g/dL (3.4-5.0) Albumin/Globulin Ratio 0.6 (1.0-1.7) Lipase 73 U/L (73-393) Urine Collection Type Unknown Urine Color Yellow Urine Clarity Clear Urine pH 7.0 (<5.0-8.0) Urine Specific [place] >=1.030 (1.000-1.030) Urine Protein Negative mg/dL (NEG-TRACE) Urine Glucose (UA) Negative mg/dL (NEG) Urine Ketones (Stick) Negative mg/dL (NEG) Urine Blood Negative (NEG) Urine Nitrite Negative (NEG) Urine Bilirubin Negative (NEG) Urine Urobilinogen Dipstick 0.2 mg/dL (0.2 mg/dL) Urine Leukocyte Esterase Negative (NEG) Urine RBC 1-2 /HPF (0-2) Urine WBC 0 /HPF (0-4) Urine Bacteria 0 /HPF (0-FEW) Urine Mucus Slight /LPF SARS-CoV-2 Antigen (Rapid) Negative (NEGATIVE) Test 03/23/20 06:35 White Blood Count 12.3 x10^3/uL (4.0-11.0) Red Blood Count 4.87 x10^6/uL (4.30-5.70) Hemoglobin 13.9 g/dL (13.0-17.5) Hematocrit 42.8 % (39.0-53.0) Mean Corpuscular Volume 88 fL (79-100) Mean Corpuscular Hemoglobin 29 pg (25-35) Mean Corpuscular Hemoglobin Concent 32 g/dL (31-37) Red Cell Distribution Width 14.3 % (11.5-14.5) Platelet Count 351 x10^3/uL (140-400) Neutrophils (%) (Auto) 80 % (31-73) Lymphocytes (%) (Auto) 14 % (24-48) Monocytes (%) (Auto) 5 % (0-9) Eosinophils (%) (Auto) 1 % (0-3) Basophils (%) (Auto) 0 % (0-3) Neutrophils # (Auto) 9.8 x10^3/uL (1.8-7.7) Lymphocytes # (Auto) 1.7 x10^3/uL (1.0-4.8) Monocytes # (Auto) 0.7 x10^3/uL (0.0-1.1) Eosinophils # (Auto) 0.1 x10^3/uL (0.0-0.7) Basophils # (Auto) 0.1 x10^3/uL (0.0-0.2) Sodium Level 140 mmol/L (136-145) Potassium Level 3.9 mmol/L (3.5-5.1) Chloride Level 103 mmol/L (98-107) Carbon Dioxide Level 28 mmol/L (21-32) Anion Gap 9 (6-14) Blood Urea Nitrogen 13 mg/dL (8-26) Creatinine 0.6 mg/dL (0.7-1.3) Estimated GFR (Cockcroft-Gault) 141.5 Glucose Level 109 mg/dL (70-99) Calcium Level 8.3 mg/dL (8.5-10.1) Problem List Problems Medical Problems: (1) Umbilical hernia with obstruction Status: Acute Assessment/Plan s/p VIH encouraged weight loss ADAT and work towards d/c Justicifation of Admission Dx: Justifications for Admission: Justification of Admission Dx: Yes Sepsis: Dehydration MANISHA WHITE MD Mar 24, 2020 16:09
[2020-03-24 19:00] VITALS: BP 122/54
--- NOTE | 2020-03-24 19:29 | PDOC ---
PROGRESS NOTES Date of Service: DATE: 03/24/20 TIME: 19:26 Chief Complaint Chief Complaint Incarcerated umbilical hernia s/p Exploratory laparotomy with repair of large umbilical hernia on 03/23/2020 Essential hypertension Leukocytosis secondary to the above mentioned incarcerated hernia Morbid obesity with a BMI of 43 Plan: Follow recommendation from business risk consultant Resume diet as per personal consultant DVT prophylaxis Lovenox once approved by personal consultant Further recommendations based on clinical course Pain management Incentive spirometer Encourage ambulation and activity History of Present Illness History of Present Illness History of Present Illness Patient is a 55-year-old gentleman with past medical history of essential hypertension who has been in his usual state of health until approximately 4 days prior to his admission when he started complaining of constipation and subsequently lower abdominal pain. The patient apparently had bouts of diarrhea and decided to self medicate and seems to have gone the other extreme. He unfortunately stopped passing gas and due to most likely his constipation he also had some nausea he denies any emesis denies any dietary transgressions no sick contacts no travels outside the area. The patient does have a history of umbilical hernia and due to the discomfort and he was scanned and found to have a large umbilical hernia containing a segment of the transverse colon that apparently was reported to be mildly obstructed and there was some inflammation surrounding this portion of colon but no wall thickening to suggest incarceration. Due to the abnormal findings of the CAT scan the patient was admitted for surgical evaluation. The patient is being seen postop after he underwent the following procedure: 03/24: No acute events reported overnight, case discussed with nursing staff patient in no acute distress no complaints during my visit Vitals Vitals Vital Signs Date Time Temp Pulse Resp B/P (MAP) Pulse Ox O2 Delivery O2 Flow Rate FiO2 03/24/20 15:00 98.2 98 18 132/62 (85) 96 Room Air 98.2 03/24/20 07:00 2.0 Physical Exam General: Alert, Oriented X3, Cooperative, No acute distress Heart: Regular rate, Normal S1, Normal S2, No murmurs Lungs: Clear Abdomen: Soft (mild TTP, dressing intact) Extremities: No clubbing, No cyanosis, Other (Mild pedal edema) Skin: No rashes, Other (Abdominal skin wounds) Assessment and Plan Assessmemt and Plan Problems Medical Problems: (1) Umbilical hernia with obstruction Status: Acute Comment Review of Relevant I have reviewed the following items jj (where applicable) has been applied. Labs Laboratory Tests Test 03/22/20 20:05 03/22/20 20:41 03/22/20 23:40 03/23/20 00:09 White Blood Count 13.7 x10^3/uL (4.0-11.0) Red Blood Count 4.95 x10^6/uL (4.30-5.70) Hemoglobin 14.6 g/dL (13.0-17.5) Hematocrit 43.2 % (39.0-53.0) Mean Corpuscular Volume 87 fL (79-100) Mean Corpuscular Hemoglobin 30 pg (25-35) Mean Corpuscular Hemoglobin Concent 34 g/dL (31-37) Red Cell Distribution Width 14.7 % (11.5-14.5) Platelet Count 383 x10^3/uL (140-400) Neutrophils (%) (Auto) 76 % (31-73) Lymphocytes (%) (Auto) 16 % (24-48) Monocytes (%) (Auto) 5 % (0-9) Eosinophils (%) (Auto) 1 % (0-3) Basophils (%) (Auto) 1 % (0-3) Neutrophils # (Auto) 10.4 x10^3/uL (1.8-7.7) Lymphocytes # (Auto) 2.2 x10^3/uL (1.0-4.8) Monocytes # (Auto) 0.7 x10^3/uL (0.0-1.1) Eosinophils # (Auto) 0.2 x10^3/uL (0.0-0.7) Basophils # (Auto) 0.2 x10^3/uL (0.0-0.2) Lactic Acid Level 0.8 mmol/L (0.4-2.0) Sodium Level 137 mmol/L (136-145) Potassium Level 3.7 mmol/L (3.5-5.1) Chloride Level 100 mmol/L (98-107) Carbon Dioxide Level 26 mmol/L (21-32) Anion Gap 11 (6-14) Blood Urea Nitrogen 13 mg/dL (8-26) Creatinine 0.8 mg/dL (0.7-1.3) Estimated GFR (Cockcroft-Gault) 101.5 BUN/Creatinine Ratio 16 (6-20) Glucose Level 111 mg/dL (70-99) Calcium Level 9.1 mg/dL (8.5-10.1) Total Bilirubin 0.3 mg/dL (0.2-1.0) Aspartate Amino Transf (AST/SGOT) 19 U/L (15-37) Alanine Aminotransferase (ALT/SGPT) 29 U/L (16-63) Alkaline Phosphatase 85 U/L (46-116) Troponin I Quantitative < 0.017 ng/mL (0.000-0.055) Total Protein 7.9 g/dL (6.4-8.2) Albumin 3.1 g/dL (3.4-5.0) Albumin/Globulin Ratio 0.6 (1.0-1.7) Lipase 73 U/L (73-393) Urine Collection Type Unknown Urine Color Yellow Urine Clarity Clear Urine pH 7.0 (<5.0-8.0) Urine Specific [place] >=1.030 (1.000-1.030) Urine Protein Negative mg/dL (NEG-TRACE) Urine Glucose (UA) Negative mg/dL (NEG) Urine Ketones (Stick) Negative mg/dL (NEG) Urine Blood Negative (NEG) Urine Nitrite Negative (NEG) Urine Bilirubin Negative (NEG) Urine Urobilinogen Dipstick 0.2 mg/dL (0.2 mg/dL) Urine Leukocyte Esterase Negative (NEG) Urine RBC 1-2 /HPF (0-2) Urine WBC 0 /HPF (0-4) Urine Bacteria 0 /HPF (0-FEW) Urine Mucus Slight /LPF SARS-CoV-2 Antigen (Rapid) Negative (NEGATIVE) Test 03/23/20 06:35 White Blood Count 12.3 x10^3/uL (4.0-11.0) Red Blood Count 4.87 x10^6/uL (4.30-5.70) Hemoglobin 13.9 g/dL (13.0-17.5) Hematocrit 42.8 % (39.0-53.0) Mean Corpuscular Volume 88 fL (79-100) Mean Corpuscular Hemoglobin 29 pg (25-35) Mean Corpuscular Hemoglobin Concent 32 g/dL (31-37) Red Cell Distribution Width 14.3 % (11.5-14.5) Platelet Count 351 x10^3/uL (140-400) Neutrophils (%) (Auto) 80 % (31-73) Lymphocytes (%) (Auto) 14 % (24-48) Monocytes (%) (Auto) 5 % (0-9) Eosinophils (%) (Auto) 1 % (0-3) Basophils (%) (Auto) 0 % (0-3) Neutrophils # (Auto) 9.8 x10^3/uL (1.8-7.7) Lymphocytes # (Auto) 1.7 x10^3/uL (1.0-4.8) Monocytes # (Auto) 0.7 x10^3/uL (0.0-1.1) Eosinophils # (Auto) 0.1 x10^3/uL (0.0-0.7) Basophils # (Auto) 0.1 x10^3/uL (0.0-0.2) Sodium Level 140 mmol/L (136-145) Potassium Level 3.9 mmol/L (3.5-5.1) Chloride Level 103 mmol/L (98-107) Carbon Dioxide Level 28 mmol/L (21-32) Anion Gap 9 (6-14) Blood Urea Nitrogen 13 mg/dL (8-26) Creatinine 0.6 mg/dL (0.7-1.3) Estimated GFR (Cockcroft-Gault) 141.5 Glucose Level 109 mg/dL (70-99) Calcium Level 8.3 mg/dL (8.5-10.1) Medications Current Medications Morphine Sulfate (Morphine Sulfate) 5 mg 1X ONCE IV Last administered on 03/22/20at 20:26; Start 03/22/20 at 20:15; Stop 03/22/20 at 20:16; Status DC Ringer's Solution 1,000 ml @ 75 mls/hr 1X ONCE IV Last administered on 03/22/20 20:21; Start 03/22/20 at 20:15; Stop 03/23/20 at 09:34; Status DC Ondansetron HCl (Zofran) 4 mg 1X ONCE IVP Last administered on 03/22/20at 20:26; Start 03/22/20 at 20:30; Stop 03/22/20 at 20:31; Status DC Iohexol (Omnipaque 300 Mg/ml) 75 ml 1X ONCE IV Last administered on 03/22/20at 21:30; Start 03/22/20 at 20:45; Stop 03/22/20 at 20:46; Status DC Info (CONTRAST GIVEN -- Rx MONITORING) 1 each PRN DAILY PRN MC SEE COMMENTS; Start 03/22/20 at 20:45; Stop 03/24/20 at 20:44 Morphine Sulfate (Morphine Sulfate) 5 mg 1X ONCE IV Last administered on 03/22/20at 21:20; Start 03/22/20 at 21:15; Stop 03/22/20 at 21:16; Status DC Piperacillin Sod/ Tazobactam Sod 4.5 gm/Sodium Chloride 100 ml @ 200 mls/hr 1X ONCE IV Last administered on 03/22/20at 22:45; Start 03/22/20 at 22:45; Stop 03/22/20 at 23:14; Status DC Morphine Sulfate (Morphine Sulfate) 5 mg 1X ONCE IV Last administered on 03/22/20at 23:44; Start 03/22/20 at 23:30; Stop 03/22/20 at 23:31; Status DC Ondansetron HCl (Zofran) 4 mg PRN Q8HRS PRN IV NAUSEA/VOMITING; Start 03/22/20 at 23:30; Stop 03/23/20 at 23:29; Status DC Morphine Sulfate (Morphine Sulfate) 4 mg PRN Q2HR PRN IV PAIN Last administered on 03/23/20at 03:10; Start 03/22/20 at 23:30; Stop 03/23/20 at 23:29; Status DC Sodium Chloride 1,000 ml @ 75 mls/hr [id number] IV Last administered on 03/23/20at 14:50; Start 03/22/20 at 23:30; Stop 03/23/20 at 23:29; Status DC Cefazolin Sodium (Ancef) 3 gm 1X PREOP PRN IVP PRIOR TO PROCEDURE; Start 03/23/20 at 08:00; Status UNV Cefazolin Sodium 3 gm/Dextrose 100 ml @ 200 mls/hr 1X PREOP PRN IV PRIOR TO PROCEDURE; Start 03/23/20 at 08:00; Stop 03/24/20 at 07:59; Status Cancel Cefazolin Sodium 3 gm/Sodium Chloride 100 ml @ 200 mls/hr 1X PREOP PRN IV PRIOR TO PROCEDURE Last administered on 03/23/20at 09:46; Start 03/23/20 at 08:00; Stop 03/24/20 at 07:26; Status DC Ondansetron HCl (Zofran) 4 mg PRN Q6HRS PRN IV NAUSEA/VOMITING; Start 03/24/20 at 07:00; Stop 03/24/20 at 07:29; Status DC Fentanyl Citrate (Fentanyl 2ml Vial) 25 mcg PRN Q5MIN PRN IV MILD PAIN 1-3; Start 03/24/20 at 07:00; Stop 03/24/20 at 07:29; Status DC Fentanyl Citrate (Fentanyl 2ml Vial) 50 mcg PRN Q5MIN PRN IV MODERATE TO SEVERE PAIN; Start 03/24/20 at 07:00; Stop 03/24/20 at 07:29; Status DC Morphine Sulfate (Morphine Sulfate) 1 mg PRN Q10MIN PRN IV SEVERE PAIN 7-10 Last administered on 03/23/20at 11:35; Start 03/24/20 at 07:00; Stop 03/24/20 at 07:29; Status DC Ringer's Solution 1,000 ml @ 30 mls/hr Q24H IV ; Start 03/24/20 at 07:00; Stop 03/24/20 at 00:58; Status DC Lidocaine HCl (Xylocaine-Mpf 1% 2ml Vial) 2 ml PRN 1X PRN ID PRIOR TO IV START; Start 03/24/20 at 07:00; Stop 03/24/20 at 07:29; Status DC Hydromorphone HCl (Dilaudid) 0.5 mg PRN Q10MIN PRN IV SEV PAIN, Second choice Last administered on 03/23/20at 12:12; Start 03/24/20 at 07:00; Stop 03/24/20 at 07:29; Status DC Prochlorperazine Edisylate (Compazine) 5 mg PACU PRN PRN IV NAUSEA, MRX1; Start 03/24/20 at 07:00; Stop 03/24/20 at 07:29; Status DC Bupivacaine HCl/ Epinephrine Bitart (Sensorcaine-Epi 0.25%-1:259615 Mpf) 30 ml 1X ONCE INJ ; Start 03/23/20 at 09:15; Stop 03/23/20 at 09:16; Status DC Rocuronium [place] (Zemuron) 50 mg STK-MED ONCE .ROUTE ; Start 03/23/20 at 09:09; Stop 03/23/20 at 09:10; Status DC Fentanyl Citrate (Fentanyl 2ml Vial) 100 mcg STK-MED ONCE .ROUTE ; Start 03/23/20 at 09:10; Stop 03/23/20 at 09:10; Status DC Propofol (Diprivan) 200 mg STK-MED ONCE IV ; Start 03/23/20 at 09:10; Stop 03/23/20 at 09:10; Status DC Lidocaine HCl (Lidocaine Pf 2% Vial) 5 ml STK-MED ONCE .ROUTE ; Start 03/23/20 at 09:10; Stop 03/23/20 at 09:10; Status DC Ondansetron HCl (Zofran) 4 mg STK-MED ONCE .ROUTE ; Start 03/23/20 at 09:10; Stop 03/23/20 at 09:11; Status DC Dexamethasone Sodium Phosphate (Decadron) 4 mg STK-MED ONCE .ROUTE ; Start 03/23/20 at 09:10; Stop 03/23/20 at 09:11; Status DC Succinylcholine Chloride (Anectine) 200 mg STK-MED ONCE .ROUTE ; Start 03/23/20 at 09:37; Stop 03/23/20 at 09:37; Status DC Phenylephrine HCl (PHENYLEPHRINE in 0.9% NACL PF) 1 mg STK-MED ONCE IV ; Start 03/23/20 at 09:48; Stop 03/23/20 at 09:48; Status DC Phenylephrine HCl (PHENYLEPHRINE in 0.9% NACL PF) 1 mg STK-MED ONCE IV ; Start 03/23/20 at 09:48; Stop 03/23/20 at 09:48; Status DC Rocuronium [place] (Zemuron) 100 mg STK-MED ONCE .ROUTE ; Start 03/23/20 at 10:31; Stop 03/23/20 at 10:31; Status DC Oxycodone/ Acetaminophen (Percocet 5/325) 1 tab PRN Q4HRS PRN PO MODERATE PAIN Last administered on 03/24/20at 00:00; Start 03/23/20 at 11:00 Oxycodone/ Acetaminophen (Percocet 5/325) 2 tab PRN Q4HRS PRN PO SEVERE PAIN Last administered on 03/24/20at 13:13; Start 03/23/20 at 11:00 Polyethylene Glycol (miraLAX PACKET) 17 gm DAILY PO Last administered on 03/24/20 at 13:12; Start 03/23/20 at 11:00 Neostigmine [place] (Neostigmine Methylsulfate) 5 mg STK-MED ONCE .ROUTE ; Start 03/23/20 at 10:58; Stop 03/23/20 at 10:58; Status DC Glycopyrrolate (Robinul) 1 mg STK-MED ONCE .ROUTE ; Start 03/23/20 at 10:58; Stop 03/23/20 at 10:59; Status DC Sevoflurane (Ultane) 60 ml STK-MED ONCE IH ; Start 03/23/20 at 10:59; Stop 03/23/20 at 10:59; Status DC Morphine Sulfate (Morphine Sulfate) 2 mg STK-MED ONCE .ROUTE ; Start 03/23/20 at 11:19; Stop 03/23/20 at 11:20; Status DC Hydromorphone HCl (Dilaudid) 2 mg STK-MED ONCE .ROUTE ; Start 03/23/20 at 11:41; Stop 03/23/20 at 11:41; Status DC Active Scripts Active Reported [Blood pressure med] Vitals/I & O Vital Sign - Last 24 Hours 03/23/20 03/23/20 03/24/20 03/24/20 19:35 23:00 00:00 01:00 Temp 98.6 98.6 Pulse 92 Resp 18 20 18 B/P (MAP) 114/69 (84) Pulse Ox 98 O2 Delivery Room Air Nasal Cannula Room Air Room Air O2 Flow Rate 2.0 03/24/20 03/24/20 03/24/20 03/24/20 03:00 07:00 07:26 08:00 Temp 98.1 97.8 98.1 97.8 Pulse 96 89 Resp 18 20 B/P (MAP) 124/67 (86) 128/57 (80) Pulse Ox 94 95 O2 Delivery Nasal Cannula Nasal Cannula Room Air Room Air O2 Flow Rate 2.0 2.0 03/24/20 03/24/20 03/24/20 11:00 13:13 15:00 Temp 98.1 98.2 98.1 98.2 Pulse 87 98 Resp 18 18 B/P (MAP) 129/60 (83) 132/62 (85) Pulse Ox 94 96 O2 Delivery Room Air Room Air Room Air Intake and Output 03/23/20 03/23/20 03/24/20 15:00 23:00 07:00 Intake Total 1800 ml 550 ml 500 ml Output Total 150 ml Balance 1650 ml 550 ml 500 ml Justicifation of Admission Dx: Justifications for Admission: Justification of Admission Dx: Yes Sepsis: Dehydration TOÑA WHITE MD Mar 24, 2020 19:29
[2020-03-24 23:00] VITALS: BP 152/85
[2020-03-25] VITALS (7 sets, daily range): BP systolic 102–157; BP diastolic 45–85
[2020-03-25] MEDS: oxyCODONE/APAP 5/325 1 TAB TABLET PO PRN ×3 (03:37→17:16)
--- NOTE | 2020-03-25 07:57 | PDOC ---
PROGRESS NOTES Date of Service: DATE: 03/25/20 TIME: 07:56 Chief Complaint Chief Complaint Incarcerated umbilical hernia s/p Exploratory laparotomy with repair of large umbilical hernia on 03/23/2020 Essential hypertension Leukocytosis secondary to the above mentioned incarcerated hernia Morbid obesity with a BMI of 43 Plan: Follow recommendation from surgical clinical reviewer reassess in the am DVT prophylaxis Lovenox once approved by fitness sales consultant Further recommendations based on clinical course Pain management Incentive spirometer Encourage ambulation and activity Hopefully discharge in the a.m. History of Present Illness History of Present Illness History of Present Illness Patient is a 55-year-old gentleman with past medical history of essential hypertension who has been in his usual state of health until approximately 4 days prior to his admission when he started complaining of constipation and subsequently lower abdominal pain. The patient apparently had bouts of diarrhea and decided to self medicate and seems to have gone the other extreme. He unfortunately stopped passing gas and due to most likely his constipation he also had some nausea he denies any emesis denies any dietary transgressions no sick contacts no travels outside the area. The patient does have a history of umbilical hernia and due to the discomfort and he was scanned and found to have a large umbilical hernia containing a segment of the transverse colon that apparently was reported to be mildly obstructed and there was some inflammation surrounding this portion of colon but no wall thickening to suggest incarceration. Due to the abnormal findings of the CAT scan the patient was admitted for casey rgical evaluation. The patient is being seen postop after he underwent the following procedure: 03/24: No acute events reported overnight, case discussed with nursing staff patient in no acute distress no complaints during my visit 03/25: No acute events reported overnight, appetite is good patient encouraged to do more activity today in anticipation for discharge in the a.m. no concerns voiced during my visit Vitals Vitals Vital Signs Date Time Temp Pulse Resp B/P (MAP) Pulse Ox O2 Delivery O2 Flow Rate FiO2 03/25/20 04:37 20 Room Air 03/25/20 03:39 97.6 70 136/78 (97) 94 97.6 03/24/20 07:00 2.0 Physical Exam General: Alert, Oriented X3, Cooperative, No acute distress Heart: Regular rate, Normal S1, Normal S2, No murmurs Lungs: Clear Abdomen: Soft (mild TTP, dressing intact) Extremities: No clubbing, No cyanosis, Other (Mild pedal edema) Skin: No rashes, Other (Abdominal skin wounds) Review of Systems Review of Systems Review of systems pertinent as per HPI otherwise 14 point review of system is n egative Assessment and Plan Assessmemt and Plan Problems Medical Problems: (1) Umbilical hernia with obstruction Status: Acute Comment Review of Relevant I have reviewed the following items jj (where applicable) has been applied. Medications Current Medications Morphine Sulfate (Morphine Sulfate) 5 mg 1X ONCE IV Last administered on 03/22/20at 20:26; Start 03/22/20 at 20:15; Stop 03/22/20 at 20:16; Status DC Ringer's Solution 1,000 ml @ 75 mls/hr 1X ONCE IV Last administered on 03/22/20at 20:21; Start 03/22/20 at 20:15; Stop 03/23/20 at 09:34; Status DC Ondansetron HCl (Zofran) 4 mg 1X ONCE IVP Last administered on 03/22/20at 20:26; Start 03/22/20 at 20:30; Stop 03/22/20 at 20:31; Status DC Iohexol (Omnipaque 300 Mg/ml) 75 ml 1X ONCE IV Last administered on 03/22/20at 21:30; Start 03/22/20 at 20:45; Stop 03/22/20 at 20:46; Status DC Info (CONTRAST GIVEN -- Rx MONITORING) 1 each PRN DAILY PRN MC SEE COMMENTS; Start 03/22/20 at 20:45; Stop 03/24/20 at 20:44; Status DC Morphine Sulfate (Morphine Sulfate) 5 mg 1X ONCE IV Last administered on 03/22/20at 21:20; Start 03/22/20 at 21:15; Stop 03/22/20 at 21:16; Status DC Piperacillin Sod/ Tazobactam Sod 4.5 gm/Sodium Chloride 100 ml @ 200 mls/hr 1X ONCE IV Last administered on 03/22/20at 22:45; Start 03/22/20 at 22:45; Stop 03/22/20 at 23:14; Status DC Morphine Sulfate (Morphine Sulfate) 5 mg 1X ONCE IV Last administered on 03/22/20at 23:44; Start 03/22/20 at 23:30; Stop 03/22/20 at 23:31; Status DC Ondansetron HCl (Zofran) 4 mg PRN Q8HRS PRN IV NAUSEA/VOMITING; Start 03/22/20 at 23:30; Stop 03/23/20 at 23:29; Status DC Morphine Sulfate (Morphine Sulfate) 4 mg PRN Q2HR PRN IV PAIN Last administered on 03/23/20at 03:10; Start 03/22/20 at 23:30; Stop 03/23/20 at 23:29; Status DC Sodium Chloride 1,000 ml @ 75 mls/hr [id number] IV Last administered on 03/23/20at 14:50; Start 03/22/20 at 23:30; Stop 03/23/20 at 23:29; Status DC Cefazolin Sodium (Ancef) 3 gm 1X PREOP PRN IVP PRIOR TO PROCEDURE; Start 03/23/20 at 08:00; Status UNV Cefazolin Sodium 3 gm/Dextrose 100 ml @ 200 mls/hr 1X PREOP PRN IV PRIOR TO PROCEDURE; Start 03/23/20 at 08:00; Stop 03/24/20 at 07:59; Status Cancel Cefazolin Sodium 3 gm/Sodium Chloride 100 ml @ 200 mls/hr 1X PREOP PRN IV PRIOR TO PROCEDURE Last administered on 03/23/20at 09:46; Start 03/23/20 at 08:00; Stop 03/24/20 at 07:26; Status DC Ondansetron HCl (Zofran) 4 mg PRN Q6HRS PRN IV NAUSEA/VOMITING; Start 03/24/20 at 07:00; Stop 03/24/20 at 07:29; Status DC Fentanyl Citrate (Fentanyl 2ml Vial) 25 mcg PRN Q5MIN PRN IV MILD PAIN 1-3; Start 03/24/20 at 07:00; Stop 03/24/20 at 07:29; Status DC Fentanyl Citrate (Fentanyl 2ml Vial) 50 mcg PRN Q5MIN PRN IV MODERATE TO SEVERE PAIN; Start 03/24/20 at 07:00; Stop 03/24/20 at 07:29; Status DC Morphine Sulfate (Morphine Sulfate) 1 mg PRN Q10MIN PRN IV SEVERE PAIN 7-10 Last administered on 03/23/20at 11:35; Start 03/24/20 at 07:00; Stop 03/24/20 at 07: 29; Status DC Ringer's Solution 1,000 ml @ 30 mls/hr Q24H IV ; Start 03/24/20 at 07:00; Stop 03/24/20 at 00:58; Status DC Lidocaine HCl (Xylocaine-Mpf 1% 2ml Vial) 2 ml PRN 1X PRN ID PRIOR TO IV START; Start 03/24/20 at 07:00; Stop 03/24/20 at 07:29; Status DC Hydromorphone HCl (Dilaudid) 0.5 mg PRN Q10MIN PRN IV SEV PAIN, Second choice Last administered on 03/23/20at 12:12; Start 03/24/20 at 07:00; Stop 03/24/20 at 07:29; Status DC Prochlorperazine Edisylate (Compazine) 5 mg PACU PRN PRN IV NAUSEA, MRX1; Start 03/24/20 at 07:00; Stop 03/24/20 at 07:29; Status DC Bupivacaine HCl/ Epinephrine Bitart (Sensorcaine-Epi 0.25%-1:120063 Mpf) 30 ml 1X ONCE INJ ; Start 03/23/20 at 09:15; Stop 03/23/20 at 09:16; Status DC Rocuronium [place] (Zemuron) 50 mg STK-MED ONCE .ROUTE ; Start 03/23/20 at 09:09; Stop 03/23/20 at 09:10; Status DC Fentanyl Citrate (Fentanyl 2ml Vial) 100 mcg STK-MED ONCE .ROUTE ; Start 03/23/20 at 09:10; Stop 03/23/20 at 09:10; Status DC Propofol (Diprivan) 200 mg STK-MED ONCE IV ; Start 03/23/20 at 09:10; Stop 03/23/20 at 09:10; Status DC Lidocaine HCl (Lidocaine Pf 2% Vial) 5 ml STK-MED ONCE .ROUTE ; Start 03/23/20 at 09:10; Stop 03/23/20 at 09:10; Status DC Ondansetron HCl (Zofran) 4 mg STK-MED ONCE .ROUTE ; Start 03/23/20 at 09:10; Stop 03/23/20 at 09:11; Status DC Dexamethasone Sodium Phosphate (Decadron) 4 mg STK-MED ONCE .ROUTE ; Start 03/23/20 at 09:10; Stop 03/23/20 at 09:11; Status DC Succinylcholine Chloride (Anectine) 200 mg STK-MED ONCE .ROUTE ; Start 03/23/20 at 09:37; Stop 03/23/20 at 09:37; Status DC Phenylephrine HCl (PHENYLEPHRINE in 0.9% NACL PF) 1 mg STK-MED ONCE IV ; Start 03/23/20 at 09:48; Stop 03/23/20 at 09:48; Status DC Phenylephrine HCl (PHENYLEPHRINE in 0.9% NACL PF) 1 mg STK-MED ONCE IV ; Start 03/23/20 at 09:48; Stop 03/23/20 at 09:48; Status DC Rocuronium [place] (Zemuron) 100 mg STK-MED ONCE .ROUTE ; Start 03/23/20 at 10:31; Stop 03/23/20 at 10:31; Status DC Oxycodone/ Acetaminophen (Percocet 5/325) 1 tab PRN Q4HRS PRN PO MODERATE PAIN Last administered on 03/24/20at 00:00; Start 03/23/20 at 11:00 Oxycodone/ Acetaminophen (Percocet 5/325) 2 tab PRN Q4HRS PRN PO SEVERE PAIN Last administered on 03/25/20at 03:37; Start 03/23/20 at 11:00 Polyethylene Glycol (miraLAX PACKET) 17 gm DAILY PO Last administered on 03/24/20at 13:12; Start 03/23/20 at 11:00 Neostigmine [place] (Neostigmine Methylsulfate) 5 mg STK-MED ONCE .ROUTE ; Start 03/23/20 at 10:58; Stop 03/23/20 at 10:58; Status DC Glycopyrrolate (Robinul) 1 mg STK-MED ONCE .ROUTE ; Start 03/23/20 at 10:58; Stop 03/23/20 at 10:59; Status DC Sevoflurane (Ultane) 60 ml STK-MED ONCE IH ; Start 03/23/20 at 10:59; Stop 03/23/20 at 10:59; Status DC Morphine Sulfate (Morphine Sulfate) 2 mg STK-MED ONCE .ROUTE ; Start 03/23/20 at 11:19; Stop 03/23/20 at 11:20; Status DC Hydromorphone HCl (Dilaudid) 2 mg STK-MED ONCE .ROUTE ; Start 03/23/20 at 11:41; Stop 03/23/20 at 11:41; Status DC Active Scripts Active Reported [Blood pressure med] Vitals/I & O Vital Sign - Last 24 Hours 03/24/20 03/24/20 03/24/20 03/24/20 08:00 11:00 13:13 15:00 Temp 98.1 98.2 98.1 98.2 Pulse 87 98 Resp 18 18 B/P (MAP) 129/60 (83) 132/62 (85) Pulse Ox 94 96 O2 Delivery Room Air Room Air Room Air Room Air 03/24/20 03/24/20 03/24/20 03/24/20 19:00 19:48 20:00 20:48 Temp 98.1 98.1 Pulse 89 Resp 20 20 20 B/P (MAP) 122/54 (76) Pulse Ox 95 O2 Delivery Room Air Room Air Room Air 03/24/20 03/25/20 03/25/20 03/25/20 23:00 03:37 03:39 04:37 Temp 98.3 97.6 98.3 97.6 Pulse 98 70 Resp 20 18 20 20 B/P (MAP) 152/85 (107) 136/78 (97) Pulse Ox 96 94 O2 Delivery Room Air Room Air Room Air Room Air Intake and Output 03/24/20 03/24/20 03/25/20 15:00 23:00 07:00 Intake Total 660 ml 420 ml 360 ml Balance 660 ml 420 ml 360 ml Justicifation of Admission Dx: Justifications for Admission: Justification of Admission Dx: Yes Sepsis: Dehydration TOÑA WHITE MD Mar 25, 2020 07:57
[2020-03-25] MEDS: POLYETHYLENE GLYCOL 3350 17 GM PACKET. PO SCH (08:57)
--- NOTE | 2020-03-25 11:53 | EKG ---
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
[2020-03-25 13:28] LABS: BASO # 0.1 x10^3/uL (0.0-0.2); BASO % 1 % (0-3); EOS # 0.3 x10^3/uL (0.0-0.7); EOS % 3 % (0-3); HEMOGLOBIN 13.3 g/dL (13.0-17.5); LYMPH % 22 % (24-48); MEAN CORPUSCULAR HEMOGLOBIN 30 pg (25-35); MEAN CORPUSCULAR HGB CONC 34 g/dL (31-37); MEAN CORPUSCULAR VOLUME 88 fL (79-100); MONO # 0.6 x10^3/uL (0.0-1.1); MONO % 7 % (0-9); NEUT # 6.1 x10^3/uL (1.8-7.7); NEUT % 68 % (31-73); PLATELET COUNT 340 x10^3/uL (140-400); RED BLOOD COUNT 4.42 x10^6/uL (4.30-5.70); RED CELL DISTRIBUTION WIDTH 14.2 % (11.5-14.5)
[2020-03-25 13:38] LABS: CALCIUM 8.8 mg/dL (8.5-10.1); CREATININE 0.9 mg/dL (0.7-1.3); GFR 88.6; POTASSIUM 3.6 mmol/L (3.5-5.1)
--- NOTE | 2020-03-25 15:26 | PDOC ---
SURGICAL PROGRESS NOTE DATE: 03/25/20 TIME: 15:25 Subjective Pt feels better, joseph PO Vital Signs Vital Signs Date Time Temp Pulse Resp B/P (MAP) Pulse Ox O2 Delivery O2 Flow Rate FiO2 03/25/20 14:34 97.7 84 18 157/85 (109) 96 Room Air 97.7 03/24/20 07:00 2.0 I&O Intake and Output 03/25/20 07:00 Intake Total 1440 ml Balance 1440 ml Intake Oral 1440 ml # Voids 6 General: Alert, Oriented X3, Cooperative, No acute distress Abdomen: Soft, No tenderness, Other (obese) Labs Laboratory Tests Test 03/25/20 12:32 White Blood Count 9.0 x10^3/uL (4.0-11.0) Red Blood Count 4.42 x10^6/uL (4.30-5.70) Hemoglobin 13.3 g/dL (13.0-17.5) Hematocrit 39.0 % (39.0-53.0) Mean Corpuscular Volume 88 fL (79-100) Mean Corpuscular Hemoglobin 30 pg (25-35) Mean Corpuscular Hemoglobin Concent 34 g/dL (31-37) Red Cell Distribution Width 14.2 % (11.5-14.5) Platelet Count 340 x10^3/uL (140-400) Neutrophils (%) (Auto) 68 % (31-73) Lymphocytes (%) (Auto) 22 % (24-48) Monocytes (%) (Auto) 7 % (0-9) Eosinophils (%) (Auto) 3 % (0-3) Basophils (%) (Auto) 1 % (0-3) Neutrophils # (Auto) 6.1 x10^3/uL (1.8-7.7) Lymphocytes # (Auto) 2.0 x10^3/uL (1.0-4.8) Monocytes # (Auto) 0.6 x10^3/uL (0.0-1.1) Eosinophils # (Auto) 0.3 x10^3/uL (0.0-0.7) Basophils # (Auto) 0.1 x10^3/uL (0.0-0.2) Sodium Level 136 mmol/L (136-145) Potassium Level 3.6 mmol/L (3.5-5.1) Chloride Level 103 mmol/L (98-107) Carbon Dioxide Level 28 mmol/L (21-32) Anion Gap 5 (6-14) Blood Urea Nitrogen 15 mg/dL (8-26) Creatinine 0.9 mg/dL (0.7-1.3) Estimated GFR (Cockcroft-Gault) 88.6 Glucose Level 137 mg/dL (70-99) Calcium Level 8.8 mg/dL (8.5-10.1) Laboratory Tests Test 03/25/20 12:32 White Blood Count 9.0 x10^3/uL (4.0-11.0) Red Blood Count 4.42 x10^6/uL (4.30-5.70) Hemoglobin 13.3 g/dL (13.0-17.5) Hematocrit 39.0 % (39.0-53.0) Mean Corpuscular Volume 88 fL (79-100) Mean Corpuscular Hemoglobin 30 pg (25-35) Mean Corpuscular Hemoglobin Concent 34 g/dL (31-37) Red Cell Distribution Width 14.2 % (11.5-14.5) Platelet Count 340 x10^3/uL (140-400) Neutrophils (%) (Auto) 68 % (31-73) Lymphocytes (%) (Auto) 22 % (24-48) Monocytes (%) (Auto) 7 % (0-9) Eosinophils (%) (Auto) 3 % (0-3) Basophils (%) (Auto) 1 % (0-3) Neutrophils # (Auto) 6.1 x10^3/uL (1.8-7.7) Lymphocytes # (Auto) 2.0 x10^3/uL (1.0-4.8) Monocytes # (Auto) 0.6 x10^3/uL (0.0-1.1) Eosinophils # (Auto) 0.3 x10^3/uL (0.0-0.7) Basophils # (Auto) 0.1 x10^3/uL (0.0-0.2) Sodium Level 136 mmol/L (136-145) Potassium Level 3.6 mmol/L (3.5-5.1) Chloride Level 103 mmol/L (98-107) Carbon Dioxide Level 28 mmol/L (21-32) Anion Gap 5 (6-14) Blood Urea Nitrogen 15 mg/dL (8-26) Creatinine 0.9 mg/dL (0.7-1.3) Estimated GFR (Cockcroft-Gault) 88.6 Glucose Level 137 mg/dL (70-99) Calcium Level 8.8 mg/dL (8.5-10.1) Problem List Problems Medical Problems: (1) Umbilical hernia with obstruction Status: Acute Assessment/Plan s/p umb hernia cont ADAT and supportive care Justicifation of Admission Dx: Justifications for Admission: Justification of Admission Dx: Yes Sepsis: Dehydration MANISHA WHITE MD Mar 25, 2020 15:26
--- NOTE | 2020-03-25 15:46 | NUR ---
Patient transferred to room 422. Report given to Chandan Strickland. All belongings packed and taken with patient.
--- NOTE | 2020-03-25 16:02 | NUR ---
Results of covid test preformed by [facility] was negative, paperwork in paper chart.
[2020-03-26 02:34] VITALS: BP 126/103
[2020-03-26 07:00] VITALS: BP 123/62
[2020-03-26] MEDS: oxyCODONE/APAP 5/325 1 TAB TABLET PO PRN (07:31)
--- NOTE | 2020-03-26 08:50 | PDOC ---
MARGRET NARANJO OTR DRIVER 03/26/20 0850: SURGICAL PROGRESS NOTE DATE: 03/26/20 TIME: 08:49 Subjective tolerating diet pain managed + flatus, no stool Vital Signs Vital Signs Date Time Temp Pulse Resp B/P (MAP) Pulse Ox O2 Delivery O2 Flow Rate FiO2 03/26/20 07:31 Room Air 03/26/20 07:00 97.6 93 18 123/62 (82) 95 97.6 I&O Intake and Output 03/26/20 07:00 Intake Total 800 ml Balance 800 ml Intake Oral 800 ml # Voids 2 General: Alert, Oriented X3, Cooperative Abdomen: Soft, Other (incision c/d/i) Labs Laboratory Tests Test 03/25/20 12:32 White Blood Count 9.0 x10^3/uL (4.0-11.0) Red Blood Count 4.42 x10^6/uL (4.30-5.70) Hemoglobin 13.3 g/dL (13.0-17.5) Hematocrit 39.0 % (39.0-53.0) Mean Corpuscular Volume 88 fL (79-100) Mean Corpuscular Hemoglobin 30 pg (25-35) Mean Corpuscular Hemoglobin Concent 34 g/dL (31-37) Red Cell Distribution Width 14.2 % (11.5-14.5) Platelet Count 340 x10^3/uL (140-400) Neutrophils (%) (Auto) 68 % (31-73) Lymphocytes (%) (Auto) 22 % (24-48) Monocytes (%) (Auto) 7 % (0-9) Eosinophils (%) (Auto) 3 % (0-3) Basophils (%) (Auto) 1 % (0-3) Neutrophils # (Auto) 6.1 x10^3/uL (1.8-7.7) Lymphocytes # (Auto) 2.0 x10^3/uL (1.0-4.8) Monocytes # (Auto) 0.6 x10^3/uL (0.0-1.1) Eosinophils # (Auto) 0.3 x10^3/uL (0.0-0.7) Basophils # (Auto) 0.1 x10^3/uL (0.0-0.2) Sodium Level 136 mmol/L (136-145) Potassium Level 3.6 mmol/L (3.5-5.1) Chloride Level 103 mmol/L (98-107) Carbon Dioxide Level 28 mmol/L (21-32) Anion Gap 5 (6-14) Blood Urea Nitrogen 15 mg/dL (8-26) Creatinine 0.9 mg/dL (0.7-1.3) Estimated GFR (Cockcroft-Gault) 88.6 Glucose Level 137 mg/dL (70-99) Calcium Level 8.8 mg/dL (8.5-10.1) Laboratory Tests Test 03/25/20 12:32 White Blood Count 9.0 x10^3/uL (4.0-11.0) Red Blood Count 4.42 x10^6/uL (4.30-5.70) Hemoglobin 13.3 g/dL (13.0-17.5) Hematocrit 39.0 % (39.0-53.0) Mean Corpuscular Volume 88 fL (79-100) Mean Corpuscular Hemoglobin 30 pg (25-35) Mean Corpuscular Hemoglobin Concent 34 g/dL (31-37) Red Cell Distribution Width 14.2 % (11.5-14.5) Platelet Count 340 x10^3/uL (140-400) Neutrophils (%) (Auto) 68 % (31-73) Lymphocytes (%) (Auto) 22 % (24-48) Monocytes (%) (Auto) 7 % (0-9) Eosinophils (%) (Auto) 3 % (0-3) Basophils (%) (Auto) 1 % (0-3) Neutrophils # (Auto) 6.1 x10^3/uL (1.8-7.7) Lymphocytes # (Auto) 2.0 x10^3/uL (1.0-4.8) Monocytes # (Auto) 0.6 x10^3/uL (0.0-1.1) Eosinophils # (Auto) 0.3 x10^3/uL (0.0-0.7) Basophils # (Auto) 0.1 x10^3/uL (0.0-0.2) Sodium Level 136 mmol/L (136-145) Potassium Level 3.6 mmol/L (3.5-5.1) Chloride Level 103 mmol/L (98-107) Carbon Dioxide Level 28 mmol/L (21-32) Anion Gap 5 (6-14) Blood Urea Nitrogen 15 mg/dL (8-26) Creatinine 0.9 mg/dL (0.7-1.3) Estimated GFR (Cockcroft-Gault) 88.6 Glucose Level 137 mg/dL (70-99) Calcium Level 8.8 mg/dL (8.5-10.1) Problem List Problems Medical Problems: (1) Umbilical hernia with obstruction Status: Acute Assessment/Plan s/p umbo hernia repair stable surgically would continue bowel regimen can Dc when medically ready Justicifation of Admission Dx: Justifications for Admission: Justification of Admission Dx: Yes Sepsis: Dehydration ERIC LORENZ MD 03/26/20 1711: SURGICAL PROGRESS NOTE Assessment/Plan Agree with Vel's assessment and plan. MARGRET NARANJO APRN Mar 26, 2020 08:50 ERIC LORENZ MD Mar 26, 2020 17:11
[2020-03-26] MEDS ORDERED: OXYC1TAB15 PO (08:52)
[2020-03-26] MEDS: POLYETHYLENE GLYCOL 3350 17 GM PACKET. PO SCH ×3 (09:49→18:00)
--- NOTE | 2020-03-26 10:55 | NUR ---
SW following. Discussed with RN, pt from home with family, room air, GI soft diet. Med Assist met with pt, pt does not have any medicaid qualifiers at this time. Pt wanting to go home, but has not had a BM. RN advised no SW needs at this time. SW will continue to follow.
[2020-03-26 11:00] VITALS: BP 111/72
--- NOTE | 2020-03-26 14:54 | PDOC ---
[facility] PROGRESS NOTE Date of Service DOS: DATE: 03/26/20 TIME: 14:54 Chief Complaint Chief Complaint Incarcerated umbilical hernia s/p Exploratory laparotomy with repair of large umbilical hernia on 03/23/2020 Essential hypertension Leukocytosis secondary to the above mentioned incarcerated hernia Morbid obesity with a BMI of 43 Plan: Follow recommendation from surgical oncologist reassess in the am DVT prophylaxis Lovenox once approved by production consultant Further recommendations based on clinical course Pain management Incentive spirometer Encourage ambulation and activity Hopefully discharge in the a.m. History of Present Illness History of Present Illness History of Present Illness Patient is a 55-year-old gentleman with past medical history of essential hypertension who has been in his usual state of health until approximately 4 days prior to his admission when he started complaining of constipation and subsequently lower abdominal pain. The patient apparently had bouts of diarrhea and decided to self medicate and seems to have gone the other extreme. He unfortunately stopped passing gas and due to most likely his constipation he also had some nausea he denies any emesis denies any dietary transgressions no sick contacts no travels outside the area. The patient does have a history of umbilical hernia and due to the discomfort and he was scanned and found to have a large umbilical hernia containing a segment of the transverse colon that apparently was reported to be mildly obstructed and there was some inflammation surrounding this portion of colon but no wall thickening to suggest incarceration. Due to the abnormal findings of the CAT scan the patient was admitted for surgical evaluation. The patient is being seen postop after he underwent the following procedure: 03/24: No acute events reported overnight, case discussed with nursing staff patient in no acute distress no complaints during my visit 03/25: No acute events reported overnight, appetite is good patient encouraged to do more activity today in anticipation for discharge in the a.m. no concerns voiced during my visit 03/26/2020 No acute events overnight. Patient sitting on bedside over the edge. No complaints voiced at this time. Patient is passing flatus but no bowel movement as of yet. Patient's chart, labs, images were reviewed and discussed with RN Vitals/I&O Vitals/I&O: Vital Signs Date Time Temp Pulse Resp B/P (MAP) Pulse Ox O2 Delivery O2 Flow Rate FiO2 03/26/20 11:00 97.6 99 18 111/72 (85) 97 Room Air 97.6 03/26/20 07:35 2.0 I & O 03/25/20 03/25/20 03/26/20 15:00 23:00 07:00 Intake Total 300 ml 500 ml 0 ml Balance 300 ml 500 ml 0 ml Physical Exam General: Alert, Oriented X3, Cooperative Heart: Regular rate, Normal S1, Normal S2, No murmurs Lungs: Clear Abdomen: Soft, Other (incision c/d/i) Extremities: No clubbing, No cyanosis, Other (Mild pedal edema) Skin: No rashes, Other (Abdominal skin wounds) Assessment and Plan Assessmemt and Plan Problems Medical Problems: (1) Umbilical hernia with obstruction Status: Acute Comment Review of Relevant I have reviewed the following items jj (where applicable) has been applied. Medications: Current Medications Medications (Trade) Dose Ordered Sig/David Route PRN Reason Start Time Stop Time Status Last Admin Dose Admin Polyethylene Glycol (miraLAX PACKET) 17 gm Q6HRS PO 03/26/20 12:00 03/26/20 12:14 Justifications for Admission Other Justification RICARDO PETTIT MD Mar 26, 2020 14:54
[2020-03-26 15:00] VITALS: BP 150/77
[2020-03-26] MEDS ORDERED: POLY17PO52 PO (16:34)
--- NOTE | 2020-03-26 16:34 | DISCH ---
DISCHARGE INSTRUCTIONS Condition on Discharge Condition on Discharge: Stable Activity After Discharge Activity Instructions for Disc: Activity as tolerated Lifting Instructions after Dis: Do not lift >10 pounds Driving Instructions after Dis: Do not drive today Diet after Discharge Diet after Discharge: Cardiac Follow-Up Follow up with: PCP within 2 weeks of discharge Follow Up With: Surgery for postoperative wound check as scheduled RICARDO PETTIT MD Mar 26, 2020 16:33
--- NOTE | 2020-03-26 18:16 | NUR ---
Patient discharge home with self care today via wheelchair accompanied by aid. A cap was called for the patient per Pt requested. Patient is stable, discharge instructions given to patient. Patient verbalized understanding of follow up and discharge instruction.
--- NOTE | 2020-03-29 15:12 | PDOC3 ---
[facility]-Discharge Summary Date of Admission: Date of Admission: Mar 23, 2020 Date of Discharge: Date of Discharge: Mar 26, 2020 Discharge Diagnosis: Discharge Diagnosis: Incarcerated umbilical hernia s/p Exploratory laparotomy with repair of large umbilical hernia on 03/23/2020 Essential hypertension Leukocytosis secondary to the above mentioned incarcerated hernia Morbid obesity with a BMI of 43 Hospital Course: Hospital Course: 55-year-old gentleman with past medical history of essential hypertension who has been in his usual state of health until approximately 4 days prior to his admission when he started complaining of constipation and subsequently lower abdominal pain. The patient apparently had bouts of diarrhea and decided to self medicate and seems to have gone the other extreme. He unfortunately stopped passing gas and due to most likely his constipation he also had some nausea he denies any emesis denies any dietary transgressions no sick contacts no travels outside the area. The patient does have a history of umbilical hernia and due to the discomfort and he was scanned and found to have a large umbilical hernia containing a segment of the transverse colon that apparently was reported to be mildly obstructed and there was some inflammation surrounding this portion of colon but no wall thickening to suggest incarceration. Due to the abnormal findings of the CAT scan the patient was admitted for surgical evaluation. The patient is being seen postop after he underwent the following procedure: 03/24: No acute events reported overnight, case discussed with nursing staff patient in no acute distress no complaints during my visit 03/25: No acute events reported overnight, appetite is good patient encouraged to do more activity today in anticipation for discharge in the a.m. no concerns voiced during my visit 03/26/2020 No acute events overnight. Patient sitting on bedside over the edge. No complaints voiced at this time. Patient is passing flatus but no bowel movement as of yet. Patient's chart, labs, images were reviewed and discussed with RN Patient had a good normal BM before DC. Rest of his hospital course was uneventful. Activity: Activity: Resume previous activity Medications: Home Meds Active Scripts Polyethylene Glycol 3350 (POLYETHYLENE GLYCOL 3350) 17 Gm Powd.pack, 17 GM PO Q6HRS for constipation\ for 14 Days, #56 PKT Prov:RICARDO PETTIT MD 03/26/20 Oxycodone/Apap 5-325 (PERCOCET 5-325 MG TABLET ) 1 Each Tablet, 1 TAB PO PRN Q4HRS PRN for MODERATE PAIN, #30 TAB 0 Refills Prov:MARGRET NARANJO [facility] 03/26/20 Discontinued Reported Medications [Blood pressure med] No Conflict Check 03/23/20 Scheduled Polyethylene Glycol 3350 (Polyethylene Glycol 3350), 17 GM PO Q6HRS Scheduled PRN Oxycodone/Apap 5-325 (Percocet 5-325 Mg Tablet ), 1 TAB PO PRN Q4HRS PRN for MODERATE PAIN Discontinued Medications [Blood pressure med], (Reported) Total Time: Total Time: Total time spent was 45 minutes in preparing scripts, discharge planning with SW and RN, and preparing this discharge summary. Patient seen and examined on day of discharge. Justicifation of Admission Dx: Justifications for Admission: Justification of Admission Dx: Yes Sepsis: Dehydration RICARDO PETTIT MD Mar 29, 2020 15:12
== END 2020-03-26 18:15 | disposition home or self-care (01) | DRG 354 ==
LOC: ER 19:43 → 5 NORTH 23:24 → 4 NORTH 03-25 13:44
PROVIDERS: ADMIT Family Medicine; ATTEND Family Medicine
PROC: 0WQF0ZZ Repair Abdominal Wall, Open Approach (ICD-10-PCS; principal; 2020-03-23 10:00)
DX: K42.0 Umbilical hernia with obstruction, without gangrene (principal); Z68.41 Body mass index [BMI] 40.0-44.9, adult; E11.9 Type 2 diabetes mellitus without complications; E66.01 Morbid (severe) obesity due to excess calories; I10 Essential (primary) hypertension; D72.829 Elevated white blood cell count, unspecified; Z20.822 Contact with and (suspected) exposure to COVID-19; Z87.891 Personal history of nicotine dependence
CPT/HCPCS: 36415; 74177; 80048; 80053; 81001; 83605; 83690; 84484; 85025; 87426; 88302; 93005; 96361; 96365; 96375; 96376; 99285; 99406; J0330; J0690; J1100; J1170; J2270; J2370; J2405; J2543; J2704; J2710; J3010; J3490; J7030; J7120; Q9967; U0003; G0378

== ENCOUNTER 2021-01-18 17:11 | Emergency (ER) | payer SELFPAY ==
[~2021-01-18] VITALS: Ht 177.8 cm; Wt 140.9 kg
[~2021-01-18 17:11] MED LIST changes: +Blood pressure med; +CYCL10TA19 PO; -CYCL10TA2 PO; +OXYC1TAB15 PO; +POLY17PO52 PO
[2021-01-18] MEDS ORDERED: fentaNYL PF VIAL 100 MCG/2 ML VIAL IVP ONE ×2 (17:45→20:00)
--- NOTE | 2021-01-18 17:49 | PHYS DOC ---
Past Medical History Past Medical History: CHF, COPD, DVT, Hypertension (ALEJANDRO HARLEY APRN) Past Surgical History: Other Additional Past Surgical Histo: right knee surgery, left knee surgery, hernia repair surgery (ALEJANDRO HARLEY APRN) Smoking Status: Current Every Day Smoker Alcohol Use: None Drug Use: None (ALEJANDRO HARLEY APRN) General Adult HPI: HPI: Patient is a 55-year-old male that presents today with umbilical abdominal pain. Patient states pain started early this morning but has intensified over the day, patient is lying in bed in moderate distress, diaphoresis noted. Patient denies chest pain or shortness of air. Patient states he had a bowel movement this morning and it was normal, patient has had no nausea or vomiting with this pain. EKG being performed at this time (ALEJANDRO HARLEY APRN) Review of Systems: Review of Systems: Constitutional: Denies fever or chills. [] Eyes: Denies change in visual acuity. [] HENT: Denies nasal congestion or sore throat. [] Respiratory: Denies cough or shortness of breath. [] Cardiovascular: Denies chest pain or edema. [] GI: abdominal pain, denies nausea, vomiting, bloody stools or diarrhea. [] : Denies dysuria. [] Musculoskeletal: Denies back pain or joint pain. [] Integument: Denies rash. [] Neurologic: Denies headache, focal weakness or sensory changes. [] Endocrine: Denies polyuria or polydipsia. [] Lymphatic: Denies swollen glands. [] Psychiatric: Denies depression or anxiety. [] (ALEJANDRO HARLEY CONTINUITY PERSON) Heart Score: C/O Chest Pain: N/A Risk Factors: Risk Factors: DM, Current or recent (<one month) smoker, HTN, HLP, family history of CAD, obesity. Risk Scores: Score 0 - 3: 2.5% MACE over next 6 weeks - Discharge Home Score 4 - 6: 20.3% MACE over next 6 weeks - Admit for Clinical Observation Score 7 - 10: 72.7% MACE over next 6 weeks - Early Invasive Strategies (ALEJANDRO HARLEY APRN) Current Medications: Current Medications Medications (Trade) Dose Ordered Sig/David Start Time Stop Time Status Last Admin Dose Admin Fentanyl Citrate (Fentanyl 2ml Vial) 50 mcg 1X ONCE 01/18/21 17:45 01/18/21 17:46 (ALEJANDRO HARLEY APRN) Allergies: Allergies: Allergies Coded Allergies Type Severity Reaction Last Updated Verified No Known Drug Allergies 03/27/13 No (ALEJANDRO HARLEY APRN) Physical Exam: PE: Constitutional: Morbidly obese, moderate distress. HENT: Normocephalic, atraumatic, bilateral external ears normal, oropharynx moist, no oral exudates, nose normal. [] Eyes: PERRLA, EOMI, conjunctiva normal, no discharge. [] Neck: Normal range of motion, no tenderness, supple, no stridor. [] Cardiovascular:Heart rate regular rhythm, no murmur [] Lungs & Thorax: Bilateral breath sounds clear to auscultation [] Abdomen: Bowel sounds hypoactive, no pain with palpation, very large multiple healed scars Skin: Warm, moist and pale. Back: No tenderness, no CVA tenderness. [] Extremities: No tenderness, no cyanosis, no clubbing, ROM intact, 2+ edema in his legs, pedal pulses present Neurologic: Alert and oriented X 3, normal motor function, normal sensory function, no focal deficits noted. [] Psychologic: Affect normal, judgement normal, mood normal. [] (ALEJANDRO HARLEY APRN) Current Patient Data: Labs: Laboratory Tests Test 01/18/21 17:37 01/18/21 20:14 White Blood Count 13.2 x10^3/uL Red Blood Count 4.76 x10^6/uL Hemoglobin 14.3 g/dL Hematocrit 42.2 % Mean Corpuscular Volume 89 fL Mean Corpuscular Hemoglobin 30 pg Mean Corpuscular Hemoglobin Concent 34 g/dL Red Cell Distribution Width 14.5 % Platelet Count 293 x10^3/uL Neutrophils (%) (Auto) 78 % Lymphocytes (%) (Auto) 15 % Monocytes (%) (Auto) 5 % Eosinophils (%) (Auto) 1 % Basophils (%) (Auto) 1 % Neutrophils # (Auto) 10.3 x10^3/uL Lymphocytes # (Auto) 2.0 x10^3/uL Monocytes # (Auto) 0.7 x10^3/uL Eosinophils # (Auto) 0.1 x10^3/uL Basophils # (Auto) 0.1 x10^3/uL Sodium Level 141 mmol/L Potassium Level 3.6 mmol/L Chloride Level 102 mmol/L Carbon Dioxide Level 32 mmol/L Anion Gap 7 Blood Urea Nitrogen 12 mg/dL Creatinine 0.9 mg/dL Estimated GFR (Cockcroft-Gault) 88.3 BUN/Creatinine Ratio 13 Glucose Level 134 mg/dL Calcium Level 8.7 mg/dL Total Bilirubin 0.4 mg/dL Aspartate Amino Transf (AST/SGOT) 118 U/L Alanine Aminotransferase (ALT/SGPT) 87 U/L Alkaline Phosphatase 113 U/L Troponin I High Sensitivity 5 ng/L YO-Hmm-L-Type Natriuretic Peptide 35 pg/mL Total Protein 7.6 g/dL Albumin 3.6 g/dL Albumin/Globulin Ratio 0.9 Lipase 70 U/L Urine Collection Type Unknown Urine Color Yellow Urine Clarity Clear Urine pH 6.0 Urine Specific [place] >=1.030 Urine Protein Negative mg/dL Urine Glucose (UA) Negative mg/dL Urine Ketones (Stick) Negative mg/dL Urine Blood Small Urine Nitrite Negative Urine Bilirubin Negative Urine Urobilinogen Dipstick 1.0 mg/dL Urine Leukocyte Esterase Negative Urine RBC 3-5 /HPF Urine WBC 0 /HPF Urine Bacteria 0 /HPF Current Medications Medications (Trade) Dose Ordered Sig/David Route PRN Reason Start Time Stop Time Status Last Admin Dose Admin Fentanyl Citrate (Fentanyl 2ml Vial) 50 mcg 1X ONCE IVP 01/18/21 17:45 01/18/21 17:46 DC 01/18/21 18:52 Iohexol (Omnipaque 350 Mg/ml) 100 ml 1X ONCE IV 01/18/21 18:15 01/18/21 18:17 DC 01/18/21 18:36 Info (CONTRAST GIVEN -- Rx MONITORING) 1 each PRN DAILY PRN MC SEE COMMENTS 01/18/21 18:30 01/20/21 18:29 Fentanyl Citrate (Fentanyl 2ml Vial) 50 mcg 1X ONCE IVP 01/18/21 20:00 01/18/21 20:01 DC 01/18/21 20:21 Vital Signs: Vital Signs Date Time Temp Pulse Resp B/P (MAP) Pulse Ox O2 Delivery O2 Flow Rate FiO2 01/18/21 20:21 27 96 Room Air 01/18/21 18:53 98.2 93 22 165/78 (107) 93 Room Air 98.2 01/18/21 18:52 19 97 Room Air 01/18/21 18:36 94 24 156/74 (101) 93 Room Air 01/18/21 18:05 95 22 144/77 (99) 93 Room Air 01/18/21 17:50 94 17 145/74 (97) 92 Room Air 01/18/21 17:35 94 17 146/75 (98) 92 Room Air 01/18/21 17:21 98.2 92 22 157/83 (107) 93 Room Air 98.2 (ALEJANDRO HARLEY CONTINUITY PERSON) EKG: EKG: EKG done at [address] Rivera at 1722 no STEMI EKG shows sinus rhythm with a probable old inferior infarct rate of 94 [] (ALEJANDRO HARLEY CONTINUITY PERSON) Radiology/Procedures: Radiology/Procedures: REASON: R/O dissection, OMNI 350, 100 ML IV PROCEDURE: CT ANGIO CHST ABD AORT W/RUNOF EXAMINATION: CT angiography chest, abdomen, pelvis, and bilateral lower extremities with IV contrast. INDICATION:55 years, Male, evaluate for aortic dissection. COMPARISON: CT chest dated 05/09/2020 TECHNIQUE: CTA of the thoracoabdominal aorta with iliofemoral runoff was obtained. 3-D, MIP Coronal and sagittal reformats available. Exposure: One or more of the following individualized dose reduction techniques were utilized for this examination: 1. Automated exposure control 2. Adjustment of the mA and/or kV according to patient size 3. Use of iterative reconstruction technique. FINDINGS: THORACIC AORTA: Limited evaluation of the ascending thoracic aorta due to cardiac pulsation artifact. However, normal caliber thoracic aorta with no dissection. No significant atherosclerotic disease. Patent great vessels. ABDOMINAL/PELVIC VASCULATURE: ABDOMINAL AORTA: Patent without significant stenosis or aneurysmal dilatation. Mild atherosclerotic calcifications. DUAL BILATERAL RENAL ARTERIES: Patent without significant stenosis or aneurysmal dilatation. CELIAC ARTERY: Patent without significant stenosis or aneurysmal dilatation. Accessory left hepatic artery arises from left gastric artery. SUPERIOR AND INFERIOR MESENTERIC ARTERIES: Patent without significant stenosis or aneurysmal dilatation. BILATERAL COMMON ILIAC ARTERY: Patent without significant stenosis or aneurysmal dilatation. BILATERAL EXTERNAL AND INTERNAL ILIAC ARTERIES: Patent without significant stenosis or aneurysmal dilatation. RIGHT LOWER EXTREMITY VASCULATURE: COMMON FEMORAL ARTERY: Patent without significant stenosis or aneurysmal dilatation. FEMORAL ARTERY: Patent without significant stenosis or aneurysmal dilatation. DEEP FEMORAL ARTERY: Patent without significant stenosis or aneurysmal dilatation. POPLITEAL ARTERY: Patent without significant stenosis or aneurysmal dilatation. ANTERIOR TIBIAL ARTERY: Patent to the foot. POSTERIOR TIBIAL ARTERY: Patent to the foot. PERONEAL ARTERY: Patent to the foot. LEFT LOWER EXTREMITY VASCULATURE: COMMON FEMORAL ARTERY: patent without significant stenosis or aneurysmal dilatation. FEMORAL ARTERY: patent without significant stenosis or aneurysmal dilatation. DEEP FEMORAL ARTERY: patent without significant stenosis or aneurysmal dilatation. POPLITEAL ARTERY: patent without significant stenosis or aneurysmal dilatation. ANTERIOR TIBIAL ARTERY: patent to the foot. POSTERIOR TIBIAL ARTERY: patent to the foot. PERONEAL ARTERY: patent to the foot. NONVASCULAR ABDOMEN AND PELVIS FINDINGS: CHEST: The visualized thyroid and esophagus are unremarkable. No lymphadenopathy in the chest by size criteria. Normal cardiac size with no pericardial effusion. No significant coronary artery atherosclerotic calcifications. Normal caliber thoracic aorta and pulmonary arteries. Unchanged multiple solid pulmonary nodules in the right middle and lower lobes with the largest measures 8 mm. LIVER: Unchanged subcentimeter hypodensity in the right hepatic lobe, too small to characterize but favors to represent cysts. GALLBLADDER AND BILIARY SYSTEM: unremarkable. SPLEEN: unremarkable. PANCREAS: unremarkable. ADRENAL GLANDS: unremarkable. KIDNEYS: Indeterminate 1.2 cm hypodense lesion along the anterior cortex of the interpolar kidney. No hydronephrosis or nephrolithiasis.. BOWEL: Few colonic diverticulosis.. BLADDER: unremarkable. REPRODUCTIVE ORGANS: unremarkable. LYMPH NODES: No abdominal or pelvic lymphadenopathy. BODY WALL: Unchanged 3.7 cm pressure cyst in the posterior right upper chest wall. Multifocal lateral abdominal wall hernia containing fat. Small fat- containing left inguinal hernia. There is a 7.5 x 4.6 cm fat density lesion with internal coarse calcification seen in the right posterior-lateral chest wall (3 image 58), unchanged since prior exam most likely representing lipoma. BONES: No aggressive osseous lesions. 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 Calcification in the right lateral base, likely representing chondrocalcinosis. OTHER: No pneumoperitoneum or ascites. IMPRESSION: 1. No evidence of aortic dissection or aneurysm of the chest, abdomen, pelvis, or arteries. 2. Bilateral three-vessel runoff to the feet. 3. Indeterminate 1.2 cm hypodense lesion in the right kidney, possibly a cyst or solid lesion. Correlate with nonemergent renal ultrasound. 4. Multiple solid pulmonary nodules throughout the right lung measuring up to 8 mm, unchanged. These are possibly representing infectious/inflammatory process. Recommend 6-12 months follow-up with CT chest. 5. Similar 7.5 x 4.6 cm fat density lesion with internal coarse calcification in the right posterior-lateral chest wall, could represent lipoma versus low- grade liposarcoma. Attention on follow-up examination. Electronically signed by: Jacob Springer MD (01/18/2021 8:02 PM) [facility] DICTATED and SIGNED BY: JACOB SPRINGER MD DATE: 01/18/21 [id number][] REASON: epigastric pain PROCEDURE: ABDOMEN LTD EXAM: ULTRASOUND ABDOMEN LIMITED CLINICAL HISTORY: Epigastric pain COMPARISON: CT same day TECHNIQUE: Limited ultrasound examination of the right upper quadrant of the abdomen was performed. FINDINGS: Liver contour is normal. Hepatopedal flow noted in the portal vein. Gallbladder is mildly distended and appears thin-walled. No pericholecystic fluid. No gallstones. Common bile ducts not visualized. Right kidney measures 12.2 cm in long axis. No hydronephrosis. Visualized portions aorta and IVC are unremarkable. IMPRESSION: 1. Distended gallbladder without secondary evidence for acute cholecystitis. 2. No right-sided hydronephrosis. 3. Normal sonographic appearance the liver. Electronically signed by: Jeannine Ventura MD (01/18/2021 10:09 PM) [facility] (ALEJANDRO HARLEY APRN) Course & Med Decision Making: Course & Med Decision Making Pertinent Labs and Imaging studies reviewed. (See chart for details) 2049 reassessment of patient, patient continues to have diaphoresis and now pain has moved up more toward the epigastric region, patient does have pain with deep palpation of the epigastrium region. Spoke with Dr. Cancino feel may be a abdominal ultrasound is indicated at this time to rule out gallbladder disease 2299 when this CONTINUITY PERSON entered the room patient was sleeping in no acute distress, patient was woken he states he has no pain at this time, discussed options with patient patient will be sent home with instructions to follow a low-fat diet and to follow-up with gastrointestinal specialist, primary care, Dr. Smith. We will send prescriptions for pain medications and Pepcid to his pharmacist for him to take. Patient is agreeable and understands plan of care patient will call his mother for her to come get him (ALEJANDRO HARLEY APRN) Dragon Disclaimer: Dragon Disclaimer: This electronic medical record was generated, in whole or in part, using a voice recognition dictation system. (ALEJANDRO HARLEY APRN) Departure Departure Impression: Primary Impression: Abdominal pain Qualified Codes: R10.13 - Epigastric pain Disposition: HOME / SELF CARE / HOMELESS Condition: STABLE Referrals: NO PCP (PCP) MANISHA WHITE MD,MANISHA LIM MD, MD Patient Instructions: Abdominal Pain Additional Instructions: Clear liquid diet for the next 24 hours and then advance as tolerated Pepcid 20 mg twice daily for the next 14 days Hydrocodone 1 tablet every 6 hours as needed for pain Follow-up with Dr. Ruff or your primary care physician in the next week for follow-up care, may also need to follow-up with gastrointestinal specialist Dr. Pedro further GI work-up Return to the emergency department if pain gets worse, inability to keep fluids down, fever or any other abdominal concerns you may have Scripts Hydrocodone Bit/Acetaminophen (HYDROCODONE-APAP 5-325 ) 1 Tab Tablet 1 TAB PO PRN Q6HRS PRN for PAIN, #14 TAB 0 Refills Prov: ALEJANDRO HARLEY APRN 01/18/21 Famotidine (PEPCID) 20 Mg Tablet 20 MG PO BID for GERD for 14 Days, #28 TAB Prov: ALEJANDRO HARLEY APRN 01/18/21 Attending Signature Attending Signature I have reviewed the PA/VICE PRESIDENT OF TALENT MANAGEMENT's note and plan of care. I was available for consultation as needed during the patient's visit in the emergency department. I agree with the clinical impression, plan, and disposition. (POPPY CANCINO DO) ALEJANDRO HARLEY APRN Jan 18, 2021 17:49 POPPY CANCINO DO Jan 19, 2021 01:53
[2021-01-18 17:52] LABS: BASO # 0.1 x10^3/uL (0.0-0.2); BASO % 1 % (0-3); EOS # 0.1 x10^3/uL (0.0-0.7); EOS % 1 % (0-3); HEMATOCRIT 42.2 % (39.0-53.0); HEMOGLOBIN 14.3 g/dL (13.0-17.5); LYMPH % 15 % (24-48); MEAN CORPUSCULAR HEMOGLOBIN 30 pg (25-35); MEAN CORPUSCULAR HGB CONC 34 g/dL (31-37); MEAN CORPUSCULAR VOLUME 89 fL (79-100); MONO # 0.7 x10^3/uL (0.0-1.1); MONO % 5 % (0-9); NEUT # 10.3 x10^3/uL (1.8-7.7); NEUT % 78 % (31-73); PLATELET COUNT 293 x10^3/uL (140-400); RED BLOOD COUNT 4.76 x10^6/uL (4.30-5.70); RED CELL DISTRIBUTION WIDTH 14.5 % (11.5-14.5); WHITE BLOOD COUNT 13.2 x10^3/uL (4.0-11.0)
[2021-01-18 18:11] LABS: CALCIUM 8.7 mg/dL (8.5-10.1); CREATININE 0.9 mg/dL (0.7-1.3); GFR 88.3; POTASSIUM 3.6 mmol/L (3.5-5.1)
[2021-01-18] MEDS ORDERED: IOHEXOL 350 MG/ML 100 ML VIAL. IV ONE (18:15)
[2021-01-18 18:17] LABS: ALBUMIN 3.6 g/dL (3.4-5.0); ALBUMIN/GLOBULIN RATIO 0.9 (1.0-1.7); TOTAL BILIRUBIN 0.4 mg/dL (0.2-1.0); TOTAL PROTEIN 7.6 g/dL (6.4-8.2)
[2021-01-18] MEDS ORDERED: CONTRAST GIVEN. MC PRN (18:30)
--- NOTE | 2021-01-18 20:04 | RAD ---
EXAMINATION: CT angiography chest, abdomen, pelvis, and bilateral lower extremities with IV contrast. INDICATION:55 years, Male, evaluate for aortic dissection. COMPARISON: CT chest dated 05/09/2020 TECHNIQUE: CTA of the thoracoabdominal aorta with iliofemoral runoff was obtained. 3-D, MIP Coronal a nd sagittal reformats available. Exposure: One or more of the following individualized dose reduction techniques were utilized for thi s examination: 1. Automated exposure control 2. Adjustment of the mA and/or kV according to patient size 3. Use of iterative reconstruction technique. FINDINGS: THORACIC AORTA: Limited evaluation of the ascending thoracic aorta due to cardiac pulsation artifact. However, normal caliber thoracic aorta with no dissection. No significant atherosclerotic disease. P atent great vessels. ABDOMINAL/PELVIC VASCULATURE: ABDOMINAL AORTA: Patent without significant stenosis or aneurysmal dilatation. Mild atherosclerotic c alcifications. DUAL BILATERAL RENAL ARTERIES: Patent without significant stenosis or aneurysmal dilatation. CELIAC ARTERY: Patent without significant stenosis or aneurysmal dilatation. Accessory left hepatic a rtery arises from left gastric artery. SUPERIOR AND INFERIOR MESENTERIC ARTERIES: Patent without significant stenosis or aneurysmal dilatati on. BILATERAL COMMON ILIAC ARTERY: Patent without significant stenosis or aneurysmal dilatation. BILATERAL EXTERNAL AND INTERNAL ILIAC ARTERIES: Patent without significant stenosis or aneurysmal dil atation. RIGHT LOWER EXTREMITY VASCULATURE: COMMON FEMORAL ARTERY: Patent without significant stenosis or aneurysmal dilatation. FEMORAL ARTERY: Patent without significant stenosis or aneurysmal dilatation. DEEP FEMORAL ARTERY: Patent without significant stenosis or aneurysmal dilatation. POPLITEAL ARTERY: Patent without significant stenosis or aneurysmal dilatation. ANTERIOR TIBIAL ARTERY: Patent to the foot. POSTERIOR TIBIAL ARTERY: Patent to the foot. PERONEAL ARTERY: Patent to the foot. LEFT LOWER EXTREMITY VASCULATURE: COMMON FEMORAL ARTERY: patent without significant stenosis or aneurysmal dilatation. FEMORAL ARTERY: patent without significant stenosis or aneurysmal dilatation. DEEP FEMORAL ARTERY: patent without significant stenosis or aneurysmal dilatation. POPLITEAL ARTERY: patent without significant stenosis or aneurysmal dilatation. ANTERIOR TIBIAL ARTERY: patent to the foot. POSTERIOR TIBIAL ARTERY: patent to the foot. PERONEAL ARTERY: patent to the foot. NONVASCULAR ABDOMEN AND PELVIS FINDINGS: CHEST: The visualized thyroid and esophagus are unremarkable. No lymphadenopathy in the chest by size criteria. Normal cardiac size with no pericardial effusion. No significant coronary artery atheroscl erotic calcifications. Normal caliber thoracic aorta and pulmonary arteries. Unchanged multiple solid pulmonary nodules in the right middle and lower lobes with the largest measures 8 mm. LIVER: Unchanged subcentimeter hypodensity in the right hepatic lobe, too small to characterize but f avors to represent cysts. GALLBLADDER AND BILIARY SYSTEM: unremarkable. SPLEEN: unremarkable. PANCREAS: unremarkable. ADRENAL GLANDS: unremarkable. KIDNEYS: Indeterminate 1.2 cm hypodense lesion along the anterior cortex of the interpolar kidney. No hydronephrosis or nephrolithiasis.. BOWEL: Few colonic diverticulosis.. BLADDER: unremarkable. REPRODUCTIVE ORGANS: unremarkable. LYMPH NODES: No abdominal or pelvic lymphadenopathy. BODY WALL: Unchanged 3.7 cm pressure cyst in the posterior right upper chest wall. Multifocal lateral abdominal wall hernia containing fat. Small fat-containing left inguinal hernia. There is a 7.5 x 4. 6 cm fat density lesion with internal coarse calcification seen in the right posterior-lateral chest wall (3 image 58), unchanged since prior exam most likely representing lipoma. BONES: No aggressive osseous lesions. Severe right and moderate to severe left knee tricompartment os teoarthritis worst in medial compartment. Calcification in the right lateral base, likely representin g chondrocalcinosis. OTHER: No pneumoperitoneum or ascites. IMPRESSION: 1. No evidence of aortic dissection or aneurysm of the chest, abdomen, pelvis, or arteries. 2. Bilateral three-vessel runoff to the feet. 3. Indeterminate 1.2 cm hypodense lesion in the right kidney, possibly a cyst or solid lesion. Corre late with nonemergent renal ultrasound. 4. Multiple solid pulmonary nodules throughout the right lung measuring up to 8 mm, unchanged. These are possibly representing infectious/inflammatory process. Recommend 6-12 months follow-up with CT c hest. 5. Similar 7.5 x 4.6 cm fat density lesion with internal coarse calcification in the right posterior -lateral chest wall, could represent lipoma versus low-grade liposarcoma. Attention on follow-up exam ination. Electronically signed by: Dorothy Springer MD (01/18/2021 8:02 PM) [facility]
[2021-01-18 20:22] LABS: BILIRUBIN,URINE NEGATIVE (NEG); CLARITY,URINE CLEAR; COLOR,URINE YELLOW; NITRITE,URINE NEGATIVE (NEG); PROTEIN,URINE NEGATIVE (NEG-TRACE)
[2021-01-18 20:30] LABS: BACTERIA,URINE 0 /HPF (0-FEW); WBC,URINE 0 /HPF (0-4)
[2021-01-18] MEDS ORDERED: FAMOTIDINE 20 MG/2 ML VIAL IVP ONE (21:00)
--- NOTE | 2021-01-18 22:12 | RAD ---
EXAM: ULTRASOUND ABDOMEN LIMITED CLINICAL HISTORY: Epigastric pain COMPARISON: CT same day TECHNIQUE: Limited ultrasound examination of the right upper quadrant of the abdomen was performed. FINDINGS: Liver contour is normal. Hepatopedal flow noted in the portal vein. Gallbladder is mildly distended and appears thin-walled. No pericholecystic fluid. No gallstones. Com mon bile ducts not visualized. Right kidney measures 12.2 cm in long axis. No hydronephrosis. Visualized portions aorta and IVC are unremarkable. IMPRESSION: 1. Distended gallbladder without secondary evidence for acute cholecystitis. 2. No right-sided hydronephrosis. 3. Normal sonographic appearance the liver. Electronically signed by: Jeannine Ventura MD (01/18/2021 10:09 PM) [facility]
[2021-01-18] MEDS ORDERED: FAMO-63 PO (23:16)
[2021-01-18] MEDS ORDERED: HYDR-2761 PO (23:16)
[2021-01-18 23:53] VITALS: BP 144/81
--- NOTE | 2021-01-20 20:20 | EKG ---
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
== END 2021-01-19 00:15 | disposition home or self-care (01) ==
LOC: ER 17:11
DX: R10.13 Epigastric pain (principal); J44.9 Chronic obstructive pulmonary disease, unspecified; I11.0 Hypertensive heart disease with heart failure; I50.9 Heart failure, unspecified; Z86.718 Personal history of other venous thrombosis and embolism; F17.200 Nicotine dependence, unspecified, uncomplicated; Z98.890 Other specified postprocedural states
CPT/HCPCS: 36415; 71275; 75635; 76705; 80053; 81001; 83690; 83880; 84484; 85025; 93005; 96374; 96375; 96376; 99285; J3010; J3490; Q9967